=== PATIENT | female | born 1970 | race Asian ===

== ENCOUNTER 2022-05-22 16:10 | Emergency (ER) | payer OTHER ==
--- OUTSIDE RECORDS SUMMARY | 2022-05-22 16:15 | XMS REPORT | Continuity of Care Document ---
:1970 Author Organization [facility] t Address [address] [place] [address] Care Team Providers Name Role Phone TATUM MCKENNA Attending Clinician Unavailable Tatum Mckenna Attending Clinician Problems Condition Condition Condition Status Onset Resolution Last Treating Co mments Source Name Details Category Date Date Treatment Clinician Date I67.1 I67.1 Diagnosis Active 2020-052021-04-01 Mem oria Active 05-16 10:28:00 l 03/16/2021 00:00: Darnell slade [address] I67.1 - I67.1 - Diagnosis Active 2017-10-17 Memoria CEREBRAL CEREBRAL 06-26 09:50:00 l ANEURYSM, ANEURYSM, 00:01: Kevin garcia NONRUPTURE NONRUPTURE 00 D D Active 06/26/2017 BAM Araya XRAY XRAY Diagnosis Active 2015-11-10 Mem oria Active 11-02 06:13:00 l 11/03/2015 00:00: Darnell slade [address] 747.89 - 747.89 - Diagnosis Active 2013-12-20 Memoria [employer] 09-05 19:07:00 l Y ANO Y ANO 00:01: Marshal Active 00 09/05/2013 BAM Araya LEFT LEFT Diagnosis Active 2011-01-29 Mem oria POSTERIOR POSTERIOR - 12:39:00 l COMMUNICAT COMMUNICAT 00:00: Ubaldo nino ING ARTERY ING ARTERY 00 ANEURYSM ANEURYSM ICD-9# 437 ICD-9# 437 Active 01/19/2011 [facility] ANEURYSM ANEURYSM Diagnosis Active 2011-01-20 Memoria Active 01-19 15:35:00 l 01/19/2011 00:00: Darnell slade [address] COMMUNICAT COMMUNICA Diagnosis Active 2011-01-14 Memoria ING ARTERY TING 01-12 06:39:00 l ARTERY 00:00: Marshal Active 00 01/12/2011 [facility] Allergic Allergic Problem Active Commo n rhinitis, rhinitis, Spir it seasonal seasonal - [facility] History of History of Problem Active C ommon CVA CVA Spirit (cerebrova (cerebrova - [facility] scular scular [facility] accident) accident) Luke s without without Medical residual residual Center deficits deficits Benign Benign Problem Active Common hypertensi hypertensi Sp caleb on on - [facility] Arthritis Arthritis Problem Active Com mon [facility] caleb toe at toe at - [facility] metatarsop metatarsop St halangeal halangeal [facility] joint joint [facility] Gastroesop Gastroesop Problem Active C ommon hageal hageal Spirit reflux reflux - [facility] disease disease [facility] without without [facility] esophagiti esophagiti Ri dical [facility] Headache Headache Problem Active 2021-04-03 Memoria (finding) (finding) 00:01:47 l Active [place] Problem 04/03/2021 Medical Group,[facility] her Neuro,[facility] OPID [place] Hypertensi Hypertens Problem Active 2021-04-03 Memoria ve sandra 00:01:47 l disorder, disorder, Herm jose systemic systemic arterial arterial (disorder) (disorder) Active Problem 04/03/2021 Medical Group,[facility] her Neuro,[facility] OPID Marshal Subarachno Subarachn Problem Active 2021-04-03 Memoria id oid 00:01:47 l hemorrhage hemorrhage He rmann (disorder) (disorder) Active Problem 04/03/2021 Medical Group,[facility] her Neuro,[facility] OPID [place] Ventriculo Ventricul Problem Active 2021-04-03 Memoria stomy ostomy 00:01:47 l (procedure (procedure He rmann ) ) Active Problem 04/03/2021 Medical Group,[facility] her Neuro,[facility]ID [place] Headache Headache Problem Active 2011-02-02 Memoria Active 08:19:56 l Problem Marshal 02/02/2011 [facility] Hypertensi Hypertens Problem Active 2011-02-02 Memoria on ion Active 08:19:56 l Problem Marshal 02/02/2011 [facility] Subarachno Subarachn Problem Active 2011-02-02 Memoria id oid 08:19:56 l hemorrhage hemorrhage He rmann Active Problem 02/02/2011 [facility] Ventriculo Ventricul Problem Active 2011-02-02 Memoria stomy ostomy 08:19:56 l Active Marshal Problem 02/02/2011 [facility] NONRUPT NONRUPT Diagnosis Active 2011-01-29 Memoria CEREBRAL CEREBRAL 12:39:00 l ANEURYM ANEURYM Marshal Active [facility] Allergies, Adverse Reactions, Alerts This patient has no known allergies or adverse reactions. Social History Social Habit Start Date Stop Date Quantity Comments Source Social History 2021-03-31 2021-03-31 [facility] 13:30:41 13:30:41 Smoking Status Start Date Stop Date Source Social [facility] Medications Ordered Filled Start Stop Current Ordering Indication Dosage Frequency Signature Comments Components Source Medication Medication Date Date Medication? Clinician (SIG) Name Name Tylenol 2020-05 No 1,000 mg, Memor ia 06-01 Route: PO, l 21:04: ONCE, Marshal 00 Dosing Weight 56.818, kg, Priority: STAT, Start date: 03/31/21 15:04:00 [employer], Stop date: 03/31/21 15:04:00 [employer] Omnipaque 2020-05 No 150 mL, Memor ia 300 2 Route: l 17:02: INTRAARTER Marshal 00 IAL, Dosing Weight 56.818, kg, ONCE, Start date: 03/31/21 11:02:00 [employer], Stop date: 03/31/21 11:02:00 [employer] Fentanyl 2020-05 No 100 Memoria 2-01 microgram, l 17:02: Route: IV, [place] 00 ONCE, Dosing Weight 56.818, kg, Start date: 03/31/21 11:02:00 [employer], Stop date: 03/31/21 11:02:00 [employer] Midazolam 2020-05 No 2 mg, Memoria 2-01 Route: IV, l 17:02: ONCE, Dosing Weight 56.818, kg, Start date: 03/31/21 11:02:00 [employer], Stop date: 03/31/21 11:02:00 [employer] Aspirin 845 2020-05 Yes 1 packet, M emoria MG / 2-01 PO, PRN, 0 l Caffeine 65 14:02: Refill(s) H ermann MG Oral 00 Powder [BC Pain Relief] Tylenol 2020-05 Yes PO, PRN, 0 Tariq rayna 2- Refill(s) l 14:01: Marshal Aspirin 2020-05 Yes 81 mg, PO, Tariq rayna 2- Daily, 0 l 14:00: Refill(s) losartan 2020-05 Yes 100 mg = 1 Mem oria 100 mg oral 2-01 tab, PO, l tablet 13:59: Daily, # Marshal 00 30 tab, 0 Refill(s) normal 2020-05 No 1,000 mL, Memori a saline 0.9% 06-01 Rate: 125 l IV 1000 mL 13:54: ml/hr, Mariel 00 Infuse over: 8 hr, Route: IV, Dosing Weight 56.818 kg, Total Volume: 1,000, Start date: 03/31/21 7:54:00 [employer], Duration: 30 day, Stop date: 04/30/21 7:53:00 [employer], BSA: 1.59 m2 Nexium 24HR Nexium 24HR 2019-0 Yes Mann 1 capsule Common 5-20 [place] Spirit 00:00: - [facility] 2018-0 Yes Mann 1 tablet Common Sodium Sodium 4-19 Little in the Spirit 00:00: evening - [facility] Omnipaque 2015-0 No 150 mL, Memor ia 300 7-12 Route: l 13:27: INTRAARTER IAL, Dosing Weight 54.091, kg, ONCE, Start date: 11/10/15 8:27:00 CDT, Stop date: 11/10/15 8:27:00 CDT Midazolam 2015-0 No 2 mg, Memoria 7-12 Route: l 13:27: IVP, ONCE, [place] 00 Dosing Weight 54.091, kg, Start date: 11/10/15 8:27:00 CDT, Stop date: 11/10/15 8:27:00 CDT Fentanyl 2016-0 No 100 Memoria 7-12 microgram, l 13:27: Route: IV, Marshal 00 ONCE, Dosing Weight 54.091, kg, Start date: 11/10/15 8:27:00 CDT, Stop date: 11/10/15 8:27:00 CDT Senna 8.6 2010-05 Yes Zhane 8.6 mg, 1 M emoria mg oral 0-03 [place] tab, PO, l tablet 12:23: Q12H, 60 [place] 29 tab, Substituti on Allowed, Maintenanc e, TAB docusate 2010-05 Yes Zhane 100 mg, 1 Me moria sodium 100 0-03 [place] cap, PO, l mg oral 12:23: Q12H, 60 Darnell n capsule 17 cap, Substituti on Allowed, CAP acetaminoph 2010-05 Yes Zhane 1 tab, PO, Memoria en-hydrocod 0-03 [place] Q4H, PRN, l one 325 12:23: 60 tab, Marshal mg-5 mg 13 Pain Score oral tablet 1-3, Substituti on Allowed, Maintenanc e, TAB heparin 2010-05 No Renetta Denny 5,000 Mem oria 5000 0-02 Nita unit, 1 l units/mL 02:00: mL, Route: Her grubbs injectable 00 SUB-Q, solution Drug form: INJ, Q12H, Start date: 01/29/11 21:00:00, Duration: 30 day, Stop date: 02/28/11 9:00:00 vancomycin 2010-05 No Jui-En 1 gm, Tariq rayna 0-01 Edward Katz Route: l 13:00: IVPB, Drug Marshal 00 form: INJ, ABXQ8H, Start date: 01/29/11 8:00:00, Duration: 1 day, Stop date: 01/30/11 0:00:00 magnesium 2010-05 No Tatum Medardo 2 gm, 50 Memoria sulfate 0-01 Mckenna mL, Route: l 11:00: IVPB, Drug Marshal 00 form: INJ, Q2H, Start date: 01/29/11 6:00:00, Duration: 2 doses or times, Stop date: 01/29/11 8:00:00 calcium 2010- No Tatum Medardo 1,000 mg, M emoria chloride 0-01 Mckenna 10 mL, l 09:58: Route: Marshal 00 IVPB, ONCE, Start date: 01/29/11 4:58:00, Stop date: 01/29/11 4:58:00 K-Dur 20 2010-05 No Tatum Medardo 40 mEq, 2 Memoria 0-01 Mckenna tab, l 09:58: Route: PO, [place] 00 Drug form: ERTAB, ONCE, Start date: 01/29/11 4:58:00, Stop date: 01/29/11 4:58:00 famotidine 2010-05 No Sushil 20 mg, 1 M emoria 0-01 [place] tab, l 02:00: Shoemaker Route: PO, Darnell n 00 Drug form: TAB, Q12H, Start date: 01/28/11 21:00:00, Duration: 30 day, Stop date: 02/27/11 9:00:00 Dilantin No Fabian 300 mg, 3 Me moria 100 mg oral 9-30 [place] cap, l capsule, 22:00: Santacruz Route: PO, Her grubbs extended 00 Drug form: release ERCAP, QPM, Start date: 01/28/11 17:00:00, Duration: 3 day, Stop date: 01/30/11 17:00:00 Sodium No Renetta Denisha 1,000 mL, Memoria Chloride 9-30 Nita Rate: 75 l 0.9% IV 20:47: ml/hr, [place] 1,000 mL 00 Infuse over: 13.3 hr, Route: IV, Total Volume: 1,000, Start date: 01/28/11 15:47:00, Stop date: 02/27/11 15:46:00 labetalol No Sushil 10 mg, 2 Me moria 9-30 [place] mL, Route: l 20:44: Navid IVP, Drug Marshal form: INJ, Q15Min, PRN Hypertensi on, Start date: 01/28/11 15:44:00, Duration: 3 doses or times, Stop date: 01/29/11 0:00:00 Zofran No Sushil 4 mg, 2 Memori a 9-30 [place] mL, Route: l 20:44: Navid IVP, Drug form: INJ, Q8H, PRN Nausea, Start date: 01/28/11 15:44:00, Duration: 30 day, Stop date: 02/27/11 15:43:00 Fioricet No Sushil 1 tab, Memor ia oral tablet 30 [place] Route: PO, l 20:43: Navid Drug Form: Darnell n 00 TAB, Q4H, PRN Headache, Start date: 01/28/11 15:43:00, Duration: 30 day, Stop date: 02/27/11 15:42:00 morphine No Sushil 2 mg, 1 Tariq rayna Sulfate 930 [place] mL, Route: l 20:37: Navid IVP, Drug form: INJ, Q1H, PRN Pain Score 7-10, Start date: 01/28/11 15:37:00, Duration: 30 day, Stop date: 02/27/11 15:36:00 vancomycin No Tatum Medardo 1 gm, Me moria 30 Mckenna Route: l 20:08: IVPB, Drug form: INJ, ABXQ8H, Start date: 01/28/11 15:08:00, Duration: 3 doses or times, Stop date: 01/29/11 7:08:00 Dextrose No Sushil 12.5 gm, Mem oria 50% Syringe 01-28 [place] 25 mL, l 19:56: Navid Route: Marshal 00 IVP, Drug Form: INJ, PRN, PRN Abnormal Lab Result, Start date: 01/28/11 14:56:00, Duration: 30 day, Stop date: 02/27/11 14:55:00 insulin No Sushil 3 unit, Memor ia regular 930 [place] 0.03 mL, l human 19:56: Navid Route: [place] recombinant 00 SUB-Q, 100 Drug form: units/mL SOLN, PRN, injectable PRN solution Abnormal Lab Result, Start date: 01/28/11 14:56:00, Duration: 30 day, Stop date: 02/27/11 14:55:00 vancomycin No Fabian 1 gm, Tariq rayna (SCIP) 01-28 [place] Route: l 18:00: Santacruz IVPB, Drug form: INJ, ABXQ8H, Start date: 01/28/11 13:00:00, Duration: 24 hr, Stop date: 01/29/11 5:00:00 naloxone No Benita Tate 0.04 mg, Memoria 9-30 Madhavi 0.1 mL, l 17:49: Route: Marshal IVP, Drug form: INJ, Q2MIN, PRN Narcotic Reversal, Start date: 01/28/11 12:49:00, Duration: 8 doses or times, Stop date: Limited # of times niCARdipine No Benita Tate 0.25 mg, Memoria 9-30 Madhavi 0.1 mL, l 17:49: Route: IVP, Drug form: INJ, Q5Min, PRN Elevated BP, Start date: 01/28/11 12:49:00, Duration: 4 doses or times, Stop date: Limited # of times metoprolol No Benita Tate 1 mg, 1 Memoria tartrate 9-30 Madhavi mL, Route: l 17:49: IVP, Drug form: INJ, Q5Min, PRN Elevated BP, Start date: 01/28/11 12:49:00, Duration: 5 doses or times, Stop date: Limited # of times fentanyl No Benita Tate 25 Mem oria 9-30 Madhavi microgram, l 17:49: 0.5 mL, Route: IVP, Drug form: INJ, Q5Min, PRN Pain, Start date: 01/28/11 12:49:00, Duration: 4 doses or times, Stop date: Limited # of times flumazenil No Benita Tate 0.2 mg, 2 Memoria 9-30 Madhavi mL, Route: l 17:49: IVP, Drug form: INJ, PRN, PRN Other -See Comment, Initial dose, Start date: 01/28/11 12:49:00, Duration: 30 day, Stop date: 02/27/11 12:48:00 ondansetron No Benita Tate 4 mg, 2 Memoria 9-30 Madhavi mL, Route: l 17:49: IVP, Drug form: INJ, ONCE, PRN Nausea & Vomiting, Start date: 01/28/11 12:49:00 amLODipine No Fabian 5 mg, 1 Me moria 9-30 [place] tab, l 14:00: Santacruz Route: PO, Drug form: TAB, Daily, Start date: 01/28/11 9:00:00, Duration: 30 day, Stop date: 02/26/11 9:00:00 famotidine No Sushil 20 mg, 2 M emoria 9-30 [place] mL, Route: l 14:00: Shoemaker IVP, Drug form: INJ, Q12H, Start date: 01/28/11 9:00:00, Duration: 30 day, Stop date: 02/26/11 21:00:00 docusate No Fabian 100 mg, 1 Me moria 9-30 [place] cap, l 14:00: Santacruz Route: PO, Drug form: CAP, Q12H, Start date: 01/28/11 9:00:00, Duration: 30 day, Stop date: 02/26/11 21:00:00 Senna 8.6 No Fabian 8.6 mg, 1 M emoria mg oral 01-28 [place] tab, l tablet 14:00: Santacruz Route: PO, Drug Form: TAB, Q12H, Start date: 01/28/11 9:00:00, Duration: 30 day, Stop date: 02/26/11 21:00:00 cefazolin No Fabian 1 gm, Memor ia (SCIP) 01-28 [place] Route: l 14:00: Santacruz IVPB, Drug form: INJ, ABXQ8H, For < 70 kg, Start date: 01/28/11 9:00:00, Duration: 24 hr, Stop date: 01/29/11 1:00:00 Sodium 2010-0 No Sushil 1,000 mL, Tariq rayna Chloride 9-30 [place] Rate: 75 l 0.9% IV 13:12: Shoemaker ml/hr, [place] 1,000 mL 00 Infuse over: 13.3 hr, Route: IV, Total Volume: 1,000, Start date: 01/28/11 8:12:00, Duration: 30 day, Stop date: 02/27/11 8:11:00 Saline No Fabian 5 ml, Memoria Flush 0.9% 01-28 [place] Route: l 13:12: Santacruz IVP, Drug Marshal 00 Form: INJ, PRN, PRN Line Flush, Start date: 01/28/11 8:12:00, Duration: 30 day, Stop date: 02/27/11 8:11:00 acetaminoph No Fabian 1 tab, Me moria en-hydrocod 01-28 [place] Route: PO, l one 325 13:12: Santacruz Drug Form: Herm jose mg-5 mg 00 TAB, Q4H, oral tablet PRN Pain Score 1-3, Start date: 01/28/11 8:12:00, Duration: 30 day, Stop date: 02/27/11 8:11:00 morphine No Fabian 2 mg, 1 Tariq rayna Sulfate 01-28 [place] mL, Route: l 13:12: Santacruz IVP, Drug [place] 00 form: INJ, Q1H, PRN Pain Score 7-10, Start date: 01/28/11 8:12:00, Duration: 30 day, Stop date: 02/27/11 8:11:00 cefazolin No Sushil 2 gm, 100 M emoria 01-28 [place] mL, Route: l 10:00: Shoemaker IVPB, Drug Darnell n 00 form: INJ, PRE OP, Start date: 01/28/11 5:00:00, Duration: 1 doses or times, Stop date: 01/28/11 18:00:00 NS + KCL No Sushil 1,000 mL, Me moria 20mEq/L 01-28 [place] Rate: 70 l 1000ml 10:00: Shoemaker ml/hr, [place] (Premix) 00 Infuse 1,000 mL over: 14.3 hr, Route: IV, Total Volume: 1,000, Start date: 01/28/11 5:00:00, Duration: 1 doses or times, Stop date: 01/28/11 19:17:00 Excedrin Yes 2 tab, PO, Mem oria 250 mg-250 9-16 Q6H, PRN, l mg-65 mg 12:44: 50 tab, Darnell n oral tablet 17 for headache, Substituti on Allowed, Maintenanc e, TAB amLODipine Yes 1 tab, PO, M emoria 5 mg oral 9-16 Daily, 30 l tablet 12:43: tab, [place] 58 Substituti on Allowed, TAB Amlodipine Amlodipine Yes Mann take 1 Common Besylate Besylate Little tablet by Fabian hennessy mouth - [facility] every day [facility] Aspirin Aspirin Yes Mann 1 tablet Com mon Adult Low Adult Low Little Spir it Dose Dose - [facility] Vitamin B12 Vitamin B12 Yes Mann not Common Little defined [facility] Cozaar Cozaar Yes Mann 1 tablet Commo n Little [facility] Vitamin B6 Vitamin B6 Yes Mann not C ommon Little defined [facility] Flonase Flonase Yes Mann 1 spray in C ommon Little each [facility] nostril [facility] Folic Acid Folic Acid Yes Mann not C ommon Little defined [facility] Fish Oil Fish Oil Yes Mann 1 capsule Common Little [facility] Claritin Claritin Yes Mann 1 tablet C ommon Little [facility] Vital Signs Vital Name Observation Time Observation Value Comments Source Respitory Rate 2021-04-01 00:00:00 Memori al [place] Systolic (mm Hg) 2021-04-01 00:00:00 Tariq rial [place] Diastolic (mm Hg) 2021-04-01 00:00:00 Mem orial [place] Respitory Rate 2021-03-31 23:00:00 Memori al [place] Systolic (mm Hg) 2021-03-31 23:00:00 Tariq rial [place] Diastolic (mm Hg) 2021-03-31 23:00:00 Mem orial [place] Respitory Rate 2021-03-31 22:00:00 Memori al [place] Systolic (mm Hg) 2021-03-31 22:00:00 Tariq rial [place] Diastolic (mm Hg) 2021-03-31 22:00:00 Mem orial [place] Height 2021-03-31 13:25:00 157.48 cm Memorial [place] Weight 2021-03-31 13:25:00 Memorial Marshal BMI Calculated 2021-03-31 13:25:00 Memori al [place] Heart Rate 2017-08-04 21:54:00 [facility] [place] Temperature Oral (F) 2017-08-04 21:54:00 97.8 F [facility] [place] BMI Calculated 2017-08-04 21:54:00 Memori al [place] Weight 2017-08-04 21:54:00 [facility] [place] Height 2017-08-04 21:54:00 157.48 cm Memorial [place] Systolic (mm Hg) 2017-08-04 21:54:00 Tariq rial Marshal Diastolic (mm Hg) 2017-08-04 21:54:00 Mem orial [place] Systolic (mm Hg) 2015-11-10 16:50:00 Tariq rial [place] Diastolic (mm Hg) 2015-11-10 16:50:00 Mem orial [place] Respitory Rate 2015-11-10 16:50:00 Memori al [place] Systolic (mm Hg) 2015-11-10 15:50:00 Tariq rial [place] Diastolic (mm Hg) 2015-11-10 15:50:00 Mem orial Marshal Respitory Rate 2015-11-10 15:50:00 Memori al [place] Systolic (mm Hg) 2015-11-10 15:20:00 Tariq rial Marshal Diastolic (mm Hg) 2015-11-10 15:20:00 Mem orial [place] Respitory Rate 2015-11-10 15:20:00 Memori al [place] Height 2015-11-10 11:29:00 157.48 cm Memorial Marshal BMI Calculated 2015-11-10 11:29:00 Memori al [place] Weight 2015-11-10 11:29:00 Memorial [place] Diastolic (mm Hg) 2011-01-31 12:35:00 Mem orial Marshal Respitory Rate 2011-01-31 12:35:00 Memori al [place] Heart Rate 2011-01-31 12:35:00 [facility] [place] Temperature Oral (F) 2011-01-31 12:35:00 98.1 F [facility] [place] Systolic (mm Hg) 2011-01-31 12:35:00 Tariq rial [place] Systolic (mm Hg) 2011-01-31 09:00:00 Tariq rial Marshal Respitory Rate 2011-01-31 09:00:00 Memori al Marshal Temperature Oral (F) 2011-01-31 09:00:00 98.1 F [facility] [place] Heart Rate 2011-01-31 09:00:00 Memorial [place] Diastolic (mm Hg) 2011-01-31 09:00:00 Mem orial [place] Diastolic (mm Hg) 2011-01-31 04:08:00 Mem orial Marshal Temperature Oral (F) 2011-01-31 04:08:00 98.7 F [facility] [place] Heart Rate 2011-01-31 04:08:00 [facility] [place] Systolic (mm Hg) 2011-01-31 04:08:00 Tariq rial Marshal Respitory Rate 2011-01-31 04:08:00 Memori al [place] Weight 2011-01-27 19:43:00 Memorial [place] Height 2011-01-27 19:43:00 157.48 cm Memorial [place] Diastolic (mm Hg) 2011-01-14 15:35:00 Mem orial [place] Systolic (mm Hg) 2011-01-14 15:35:00 Tariq rial [place] Respitory Rate 2011-01-14 15:35:00 Memori al [place] Peripheral Pulse Rate 2011-01-14 15:35:00 Memorial Marshal Respitory Rate 2011-01-14 15:20:00 Memori al [place] Diastolic (mm Hg) 2011-01-14 15:20:00 Mem orial Marshal Systolic (mm Hg) 2011-01-14 15:20:00 Tariq rial Marshal Peripheral Pulse Rate 2011-01-14 15:20:00 [facility] [place] Systolic (mm Hg) 2011-01-14 12:42:00 Tariq rial [place] Diastolic (mm Hg) 2011-01-14 12:42:00 Mem orial [place] Peripheral Pulse Rate 2011-01-14 12:18:00 [facility] [place] Respitory Rate 2011-01-14 12:18:00 Hollis isrrael Araya Weight 2011-01-14 11:52:00 [facility] Height 2011-01-14 11:52:00 157.48 cm [facility] Procedures This patient has no known procedures. Encounters Start End Encounter Admission Attending Care Care Encounter Source Date/Time Date/Time Type Type Clinicians Facility Department ID 2021-03-31 2021-04-01 Bedded [facility] [id number] Memoria 12:49:00 00:00:00 Outpatient r [place] 03 l [facility] 2021-03-31 2021-03-31 Outpatient TATUM MCKENNA [facility] [id number] [facility] 06:49:00 18:00:00 2021-03-31 2021-03-31 Outpatient Tatum Mckenna [facility] [id number] 06:49:00 18:00:00 Medardo 2021-03-26 2021-03-27 [id number] Memoria 19:30:00 05:59:59 r Care Clear 01 l Jonancy [place] 2021-03-26 2021-03-26 Outpatient [facility] [id number] 13:30:00 23:59:59 2021-03-26 2021-03-26 Outpatient MHIE MHIE [id number] Memoria 13:30:00 13:30:00 01 [facility] 2021-03-23 2021-03-23 Outpatient Tatum Mckenna [facility] [id number] 08:30:00 08:30:00 Medardo 2019-02-20 2019-02-20 [facility] [id number] Common 13:00:00 13:00:00 [facility] 2018-12-17 2018-12-17 [facility] [id number] Common 08:14:00 08:14:00 [facility] 2018-11-07 2018-11-07 Out[facility] [id number] Common 15:15:00 15:15:00 [facility] 2018-08-20 2018-08-20 Out[facility] [id number] Common 16:15:00 16:15:[address] [facility] [address] [facility] 2018-04-11 2018-04-11 Out[facility] [id number] Common 15:15:00 15:15:[address] [facility] [address] [facility] 2017-09-18 2017-09-20 Phone nullFlavo [facility] [id number] Memoria 17:50:00 04:59:59 Message r Clinic [facility] 07 l [place] 2017-09-18 2017-09-19 Outpatient MHMISCHER MHMISCHER [id number] 12:50:00 23:59:59 07 2017-09-01 2017-09-02 Outpt Diag nullFlavo [facility] [id number] Memoria 12:47:00 04:59:00 Services r Outpatient 03 l Imaging [place] 2017-09-01 2017-09-01 [id number] 07:47:00 23:59:00 Medardo 2017-08-17 2017-08-17 [facility] [id number] Common 10:16:00 10:16:[address] [facility] [address] [facility] 2017-08-17 2017-08-17 Outpatient [facility] [id number] Common 09:30:00 09:30:[address] [facility] [address] [facility] 2017-08-04 2017-08-05 Outpatient nullFlavo MNA [id number] Memoria 17:00:00 04:59:59 r Neurosurger 00 l y [facility] 2017-08-04 2017-08-04 Outpatient Tatum Mckenna MHMISCHER MHMISCHER [id number] 12:00:00 23:59:59 Medardo 2017-08-04 2017-08-04 Outpatient MHIE MHIE [id number] Memoria 12:00:00 12:00:00 00 na Araya 2017-07-28 2017-07-28 Outpt Diag nullFlavo [facility] [id number] Memoria 14:00:00 14:00:00 Services r Outpatient 02 l Imaging [facility] 2017-07-28 2017-07-28 Outpatient Tatum Mckenna [facility] [id number] 09:00:00 09:00:00 Medardo 02 2017-07-06 2017-07-08 Phone nullFlavo MNA [id number] Memoria 19:49:00 05:59:59 Message r Neurosurger 06 l y [facility] 2017-07-06 2017-07-07 Outpatient MHMISCHER MHMISCHER [id number] 13:49:00 23:59:59 06 2017-07-06 2017-07-07 Outpatient MHMISCHER MHMISCHER [id number] 13:49:00 23:59:59 06 2017-06-20 2017-06-22 Phone nullFlavo MNA [id number] Memoria 21:53:00 05:59:59 Message r Neurosurger 05 l y [facility] 2017-06-20 2017-06-22 Phone nullFlavo MNA [id number] Memoria 21:52:00 05:59:59 Message r Neurosurger 04 l y [facility] 2017-06-20 2017-06-21 Outpatient MHMISCHER MHMISCHER [id number] 15:53:00 23:59:59 05 2017-06-20 2017-06-21 Outpatient MHMISCHER MHMISCHER [id number] 15:52:00 23:59:59 04 2017-06-16 2017-06-18 Phone nullFlavo MNA [id number] Memoria 21:11:00 05:59:59 Message r Neurosurger 03 l y [facility] 2017-06-16 2017-06-18 Phone nullFlavo MNA [id number] Memoria 21:09:00 05:59:59 Message r Neurosurger 02 l y [facility] 2017-06-16 2017-06-17 Outpatient MHMISCHER MHMISCHER [id number] 15:11:00 23:59:59 03 2017-06-16 2017-06-17 Outpatient MHMISCHER MHMISCHER [id number] 15:09:00 23:59:59 2015-11-10 2015-11-10 [id number] Memoria 11:05:00 17:00:00 Outpatient r [place] 02 l [facility] 2015-11-10 2015-11-10 Outpatient Tatum Mckenna [facility] [id number] 06:05:00 12:00:00 [place] 02 2011-01-28 2011-01-31 Inpatient nullFlavo [facility] [facility] [id number] Memoria 05:36:00 09:39:00 r Medical 01 l [facility] 2011-01-14 2011-01-14 JOE nullFlavo [facility] [id number] Memoria 06:28:00 16:00:00 r Medical 00 l [facility] Results Test Description Test Time Test Comments Results Result Comments Source IMMUNOLOGY 2021-03-26 18:29:00 Test Item Value Reference Range Interpretation Comme nts Coronavirus (COVID-19) ADRIANA (test code = Not Detected *NA*(03/26/21 12:29 PM) Coronavirus (COVID-19) ADRIANA) [facility]2016-07-12 12:43:00 Test Item Value Reference Range Interpretation Comments POC Creatinine (test code = POC 0.8 0.5-1.4 Creatinine) [facility]2016-07-12 12:43:00 Test Item Value Reference Range Interpretation Comments eGFR (test code = eGFR) 104 [facility]EejkluiNNJJLMTAGK4188-87-39 11:31:00 Test Item Value Reference Range Interpretation Comments MCV (test code = MCV) 89.8 80.0-98.0 [facility] CenterWwhgmnsHZKHFIVDRO8339-09-08 11:31:00 Test Item Value Reference Range Interpretation Comments Hct (test code = Hct) 38.4 36.0-48.0 [facility] CenterVumhyhsQFHIVCVXDI1406-61-52 11:31:00 Test Item Value Reference Range Interpretation Comments MPV (test code = MPV) 8.1 7.4-10.4 [facility] CenterXgjqrijWDTYUJNHAN8777-98-75 11:31:00 Test Item Value Reference Range Interpretation Comments Hgb (test code = Hgb) 13.1 12.0-16.0 [facility] CenterDqvprqoPYKRCCBAXR6266-39-93 11:31:00 Test Item Value Reference Range Interpretation Comments RBC (test code = RBC) 4.28 4.20-5.40 [place] 861426-07-12 11:31:00 Test Item Value Reference Range Interpretation Comments WBC (test code = WBC) 4.5 3.7-10.4 [facility] CenterHrlvsorPLWZZYTHON2205-00-00 11:31:00 Test Item Value Reference Range Interpretation Comments PT (test code = PT) 13.0 s 12.0-14.7 [facility] CenterTchewajZGESBAQPMY6921-54-23 11:31:00 Test Item Value Reference Range Interpretation Comments PTT (test code = PTT) 32.9 s 22.9-35.8 [facility] CenterBtrrffoDIHDZMCBAN8139-78-48 11:31:00 Test Item Value Reference Range Interpretation Comments INR (test code = INR) 0.95 0.85-1.17 [facility]2016-07-12 11:31:00 Test Item Value Reference Range Interpretation Comments eGFR (test code = eGFR) 104 [facility]2016-07-12 11:31:00 Test Item Value Reference Range Interpretation Comments CO2 (test code = CO2) 28 24-32 [facility]2016-07-12 11:31:00 Test Item Value Reference Range Interpretation Comments Calcium Lvl (test code = Calcium Lvl) 8.8 8.5-10.5 [facility]2016-07-12 11:31:00 Test Item Value Reference Range Interpretation Comments Chloride Lvl (test code = Chloride Lvl) 105 95-109 [facility]2016-07-12 11:31:00 Test Item Value Reference Range Interpretation Comments Glucose Lvl (test code = Glucose Lvl) 86 70-99 [facility]2016-07-12 11:31:00 Test Item Value Reference Range Interpretation Comments BUN (test code = BUN) 12 11-19 [facility]2016-07-12 11:31:00 Test Item Value Reference Range Interpretation Comments Creatinine Lvl (test code = Creatinine 0.80 0.50-1.40 Lvl) [facility]2016-07-12 11:31:00 Test Item Value Reference Range Interpretation Comments Sodium Lvl (test code = Sodium Lvl) 140 135-145 [facility]2016-07-12 11:31:00 Test Item Value Reference Range Interpretation Comments Potassium Lvl (test code = Potassium 4.2 3.5-5.1 Lvl) [facility]2016-07-12 11:31:00 Test Item Value Reference Range Interpretation Comments AGAP (test code = AGAP) 11.2 10.0-20.0 [facility] CenterIaznrruDEWNTZCLZA7863-61-38 11:31:00 Test Item Value Reference Range Interpretation Comments Monocytes # (test code 0.4 See_Comment [Aut omated message] The = Monocytes #) system which generated this result tra nsmitted reference range : <=0.8. The reference r maribel was not used to int erpret this result as normal/abnormal . [facility] CenterOhlaplbJMRJRLBKTU5728-06-64 11:31:00 Test Item Value Reference Range Interpretation Comments Eosinophils # (test code 0.2 See_Comment [A utomated message] The = Eosinophils #) system whic h generated this result tra nsmitted reference range : <=0.5. The reference r maribel was not used to int erpret this result as normal/abnormal . [facility] CenterVtdqvzcQHAXVSRWAQ2476-70-71 11:31:00 Test Item Value Reference Range Interpretation Comments Basophils # (test code 0.1 See_Comment [Aut omated message] The = Basophils #) system which generated this result tra nsmitted reference range : <=0.2. The reference r maribel was not used to int erpret this result as normal/abnormal . [facility] CenterQjrrktfJAXUCFYUOI3572-79-78 11:31:00 Test Item Value Reference Range Interpretation Comments Segs (test code = Segs) 48.5 45.0-75.0 [facility] CenterVquqxtcXSLCIWOYET8768-94-19 11:31:00 Test Item Value Reference Range Interpretation Comments Segs-Bands # (test code = Segs-Bands #) 2.2 1.5-8.1 [facility] CenterEhrjcbrAIBRPNCQQE9042-79-13 11:31:00 Test Item Value Reference Range Interpretation Comments Basophils (test code = 1.1 See_Comment [Aut omated message] The Basophils) system which ge nerated this result tra nsmitted reference range : <=1.0. The reference r maribel was not used to int erpret this result as normal/abnormal . [facility] CenterAlmfabkBHTAZLLKJB5979-22-52 11:31:00 Test Item Value Reference Range Interpretation Comments Lymphocytes # (test code = Lymphocytes 1.6 1.0-5.5 #) [facility] CenterZlpazkkKEMKOKQBKH8816-56-33 11:31:00 Test Item Value Reference Range Interpretation Comments Lymphocytes (test code = Lymphocytes) 36.1 20.0-40.0 [facility] CenterZzxaomzKWSVKQEFDB5347-42-61 11:31:00 Test Item Value Reference Range Interpretation Comments Eosinophils (test code = 4.9 See_Comment [A utomated message] The Eosinophils) system which ge nerated this result tra nsmitted reference range : <=4.0. The reference r maribel was not used to int erpret this result as normal/abnormal . [facility] CenterHseulguFARSOHCZKU9881-33-85 11:31:00 Test Item Value Reference Range Interpretation Comments Monocytes (test code = Monocytes) 9.4 2.0-12.0 [facility] CenterIjqgqrrEVQVUIDLBL3408-08-20 11:31:00 Test Item Value Reference Range Interpretation Comments Platelet (test code = Platelet) 287 133-450 [facility] CenterWcsgydiAEFVHPJFLT1074-71-19 11:31:00 Test Item Value Reference Range Interpretation Comments MCHC (test code = MCHC) 34.1 32.0-36.0 [facility] CenterOxfkfgtBZTKKKDNHU8493-25-22 11:31:00 Test Item Value Reference Range Interpretation Comments RDW (test code = RDW) 12.8 11.5-14.5 [facility] CenterMmkwhbdSXXSRAIXOM3616-77-03 11:31:00 Test Item Value Reference Range Interpretation Comments MCH (test code = MCH) 30.6 pg 27.0-31.0 [facility]WzptdmjWWZWEETYQ2705-25-28 06:21:00 Test Item Value Reference Range Interpretation Comments Ca Norm mgdL (test code = Ca Norm mgdL) 4.92 4.65-5.20 N [facility] CampusWthnzznIFQMHNTIA9534-03-92 06:21:00 Test Item Value Reference Range Interpretation Comments Ca Ion mgdL (test code = Ca Ion mgdL) 4.8 4.65-5.20 N [facility] CampusDvlwmavKUTPIUCAS9949-54-93 06:21:00 Test Item Value Reference Range Interpretation Comments Ca Norm (test code = Ca Norm) 1.23 1.16-1.30 N [facility] CampusWwxmvybXTMQFUHDW5638-78-71 06:21:00 Test Item Value Reference Range Interpretation Comments Ca Ion (test code = Ca Ion) 1.2 1.16-1.30 N [facility] CampusZssbxdoVTWJRGVIS8937-91-58 06:21:00 Test Item Value Reference Range Interpretation Comments Phosphorus (test code = Phosphorus) 2.4 2.5-4.5 L [facility] CampusWvorlxtOANVICNSJ8819-82-01 06:21:00 Test Item Value Reference Range Interpretation Comments AGAP (test code = AGAP) 12.6 10.0-20.0 N [facility] CampusArmtmxoBGXBZKQTZ7243-73-86 06:21:00 Test Item Value Reference Range Interpretation Comments Calcium Lvl (test code = Calcium Lvl) 8.7 8.5-10.5 N [facility] CampusXfvhvqmPTGHQLUWO1397-70-67 06:21:00 Test Item Value Reference Range Interpretation Comments CO2 (test code = CO2) 25.0 24-32 N [facility] CampusMzaxsdqWJPXTIVQL4826-71-79 06:21:00 Test Item Value Reference Range Interpretation Comments Glucose Lvl (test code = Glucose Lvl) 128.0 [facility] CampusDirugnwTAIKXNHUJ6640-98-83 06:21:00 Test Item Value Reference Range Interpretation Comments BUN (test code = BUN) 10.0 7-22 N [facility] CampusJimdsneASQKGDWWE1749-91-20 06:21:00 Test Item Value Reference Range Interpretation Comments Sodium Lvl (test code = Sodium Lvl) 137.0 135-145 N [facility] CampusIpkwpoiQTCLVQGGJ7524-34-31 06:21:00 Test Item Value Reference Range Interpretation Comments Creatinine Lvl (test code = Creatinine 1.0 0.5-1.4 N Lvl) [facility] CampusBiciasiCTHKPWNWH0724-00-88 06:21:00 Test Item Value Reference Range Interpretation Comments Chloride Lvl (test code = Chloride Lvl) 103.0 95-109 N [facility] CampusGvusdaaIDGQVINVL7683-01-69 06:21:00 Test Item Value Reference Range Interpretation Comments Potassium Lvl (test code = Potassium 3.6 3.5-5.1 N Lvl) [facility] CampusNhzmsfcIDNENANFC4090-76-09 06:21:00 Test Item Value Reference Range Interpretation Comments Magnesium Lvl (test code = Magnesium 2.0 1.8-2.4 N Lvl) [facility]qmyowsIUVASWJBSA0063-90-75 06:21:00 Test Item Value Reference Range Interpretation Comments Segs-Bands # (test code = Segs-Bands #) 8.5 1.5-8.1 H [facility] CenterToihmvaRMDGPUTYEY0752-20-17 06:21:00 Test Item Value Reference Range Interpretation Comments Lymphocytes # (test code = Lymphocytes 1.2 1.0-5.5 N #) [facility] CenterFaoxhblBAKEIFHQYA1999-76-18 06:21:00 Test Item Value Reference Range Interpretation Comments Eosinophils (test code = 0.1 See_Comment N [A utomated message] The Eosinophils) system which ge nerated this result tra nsmitted reference range : <=4.0. The reference r maribel was not used to int erpret this result as normal/abnormal . [facility] CenterSrzyyrvZYNGISJRDS0470-93-28 06:21:00 Test Item Value Reference Range Interpretation Comments Monocytes (test code = Monocytes) 8.3 2.0-12.0 N [facility] CenterMyxnpkfVEWNRTOUVM0234-92-60 06:21:00 Test Item Value Reference Range Interpretation Comments Segs (test code = Segs) 78.8 45.0-75.0 H [facility] CenterYvhynzwZQSUCRSKRE1007-68-79 06:21:00 Test Item Value Reference Range Interpretation Comments Lymphocytes (test code = Lymphocytes) 11.1 20.0-40.0 L [facility] CenterXjqndfwJUOYMNANOI3012-58-16 06:21:00 Test Item Value Reference Range Interpretation Comments Monocytes # (test code 0.9 See_Comment H [Aut omated message] The = Monocytes #) system which generated this result tra nsmitted reference range : <=0.8. The reference r maribel was not used to int erpret this result as normal/abnormal . [facility] CenterPagvjnnRGMUJHRDTN2440-82-18 06:21:00 Test Item Value Reference Range Interpretation Comments Eosinophils # (test code 0.0 See_Comment N [A utomated message] The = Eosinophils #) system whic h generated this result tra nsmitted reference range : <=0.5. The reference r maribel was not used to int erpret this result as normal/abnormal . [facility] CenterAxiwkpdORXPLIUBXD7284-35-57 06:21:00 Test Item Value Reference Range Interpretation Comments Basophils (test code = 1.7 See_Comment H [Aut omated message] The Basophils) system which ge nerated this result tra nsmitted reference range : <=1.0. The reference r maribel was not used to int erpret this result as normal/abnormal . [facility] CenterFdmncsyLCIMTOYFHV5333-48-76 06:21:00 Test Item Value Reference Range Interpretation Comments Basophils # (test code 0.2 See_Comment N [Aut omated message] The = Basophils #) system which generated this result tra nsmitted reference range : <=0.2. The reference r maribel was not used to int erpret this result as normal/abnormal . [facility] CenterHwzffdeIOWJTFQZXG8164-31-39 06:21:00 Test Item Value Reference Range Interpretation Comments INR (test code = INR) 1.1 1 0.85-1.17 N [facility] CenterDftaybzBVYRHSQLCO0441-85-47 06:21:00 Test Item Value Reference Range Interpretation Comments PT (test code = PT) 14.2 s 12.0-14.7 N [facility] CenterAzernoxOEMOEBELUQ8335-04-35 06:21:00 Test Item Value Reference Range Interpretation Comments PTT (test code = PTT) 40.2 s 22.9-35.8 H [facility] CenterDruoqgqWZLRHLTTXP4462-13-69 06:21:00 Test Item Value Reference Range Interpretation Comments Platelet (test code = Platelet) 221.0 133-450 N [facility] CenterRuaqfcpZBHNMGBQCX3459-78-92 06:21:00 Test Item Value Reference Range Interpretation Comments MPV (test code = MPV) 8.6 7.4-10.4 N [facility] CenterHkuiweiYCCQYQGEOX5904-75-91 06:21:00 Test Item Value Reference Range Interpretation Comments MCH (test code = MCH) 29.2 pg 27.0-31.0 N [facility] CenterMjqdajdCEAUDADWWZ0081-78-47 06:21:00 Test Item Value Reference Range Interpretation Comments MCV (test code = MCV) 85.3 81.0-99.0 N [facility] CenterXxpqhsgRPFCKXENFZ7253-45-84 06:21:00 Test Item Value Reference Range Interpretation Comments RDW (test code = RDW) 15.0 11.5-14.5 H [facility] CenterMelztxqEWZPFSWHKW4244-25-63 06:21:00 Test Item Value Reference Range Interpretation Comments MCHC (test code = MCHC) 34.2 32.0-36.0 N [facility] CenterLjjmzumEOAABOPXWL1753-51-13 06:21:00 Test Item Value Reference Range Interpretation Comments RBC (test code = RBC) 3.66 4.20-5.40 L [facility] CenterGundwmhRBJTMVFNLU4492-70-95 06:21:00 Test Item Value Reference Range Interpretation Comments WBC (test code = WBC) 10.8 3.7-10.4 H [facility] CenterDdghkbtYJYIYXGEAO1724-54-71 06:21:00 Test Item Value Reference Range Interpretation Comments Hgb (test code = Hgb) 10.7 12.0-16.0 L [facility] CenterWawmqrdZIDRKUFEQP0279-69-15 06:21:00 Test Item Value Reference Range Interpretation Comments Hct (test code = Hct) 31.2 36.0-48.0 L [facility] CampusIgykfwvJAVMAWRFF5678-10-13 15:12:00 Test Item Value Reference Range Interpretation Comments Calcium Lvl (test code = Calcium Lvl) 9.4 8.5-10.5 N [facility] CampusZjfhpxtBBYQSZLOS0075-74-44 15:12:00 Test Item Value Reference Range Interpretation Comments AGAP (test code = AGAP) 10.8 10.0-20.0 N [facility] CampusVopfkziDQLBEALQF2036-81-62 15:12:00 Test Item Value Reference Range Interpretation Comments Potassium Lvl (test code = Potassium 3.8 3.5-5.1 N Lvl) [facility] CampusLqgwttjSBTJAIHXA1317-82-81 15:12:00 Test Item Value Reference Range Interpretation Comments CO2 (test code = CO2) 27.0 24-32 N [facility] CampusPmhukieDTGYHBZHP5086-59-95 15:12:00 Test Item Value Reference Range Interpretation Comments Chloride Lvl (test code = Chloride Lvl) 103.0 95-109 N [facility] CampusAderozlZCPMEFEEI1509-93-07 15:12:00 Test Item Value Reference Range Interpretation Comments Sodium Lvl (test code = Sodium Lvl) 137.0 135-145 N [facility] CampusSwcejqmPRLFAGYEE6598-29-50 15:12:00 Test Item Value Reference Range Interpretation Comments Creatinine Lvl (test code = Creatinine 0.8 0.5-1.4 N Lvl) [facility] CampusFodhwiaSXVWGTBCA5086-40-61 15:12:00 Test Item Value Reference Range Interpretation Comments BUN (test code = BUN) 7.0 7-22 N [facility] CampusYqngbsiTHIWRIAVJ4293-44-07 15:12:00 Test Item Value Reference Range Interpretation Comments Glucose Lvl (test code = Glucose Lvl) 107.0 [facility] GLUCOSE MDSOHDE4864-32-99 12:32:00 Test Item Value Reference Range Interpretation Comments Gluc POC Lifscn (test code = Gluc POC 120.0 65-110 H Lifscn) [facility] CampusEsdaijpVJIUUMAMD7508-11-31 11:15:00 Test Item Value Reference Range Interpretation Comments U Osmolality (test code = U Osmolality) 194.0 300-800 L [facility] CampusLjusaueMXOWYKAAR0685-67-95 11:15:00 Test Item Value Reference Range Interpretation Comments U Sodium (test code = U Sodium) 32.0 [facility] GLUCOSE GBZFMBP8414-73-33 08:40:00 Test Item Value Reference Range Interpretation Comments Comment1 (test code = Comment1) Notify RN/MD [facility] GLUCOSE CRENEXQ1485-95-60 08:40:00 Test Item Value Reference Range Interpretation Comments Gluc POC Lifscn (test code = Gluc POC 115.0 65-110 H Lifscn) [facility] CampusRpzwknzLEFDXEFXQ6325-36-46 06:00:00 Test Item Value Reference Range Interpretation Comments Phosphorus (test code = Phosphorus) 3.2 2.5-4.5 N [facility] CampusHtojlyaJOKVHMWCS4678-64-89 06:00:00 Test Item Value Reference Range Interpretation Comments Magnesium Lvl (test code = Magnesium 1.5 1.8-2.4 L Lvl) [facility] CampusWnmhiikFGANBYSZO3840-81-33 06:00:00 Test Item Value Reference Range Interpretation Comments AGAP (test code = AGAP) 12.7 10.0-20.0 N [facility] CampusGxagfipXUKRSVALF6070-66-13 06:00:00 Test Item Value Reference Range Interpretation Comments CO2 (test code = CO2) 22.0 24-32 L [facility] CampusAkjwimjEVGUZGYTW6140-95-05 06:00:00 Test Item Value Reference Range Interpretation Comments Calcium Lvl (test code = Calcium Lvl) 8.2 8.5-10.5 L [facility] CampusQlqgrieOFMYWUDIA1423-56-07 06:00:00 Test Item Value Reference Range Interpretation Comments Glucose Lvl (test code = Glucose Lvl) 115.0 [facility] CampusWdlqgxkCLHKGTBBC4359-16-56 06:00:00 Test Item Value Reference Range Interpretation Comments Creatinine Lvl (test code = Creatinine 0.8 0.5-1.4 N Lvl) [facility] CampusYclbwljIENMLNKDK9453-12-24 06:00:00 Test Item Value Reference Range Interpretation Comments Sodium Lvl (test code = Sodium Lvl) 130.0 135-145 L [facility] CampusBadvgwfRRZLOVBSA0768-39-82 06:00:00 Test Item Value Reference Range Interpretation Comments BUN (test code = BUN) 7.0 7-22 N [facility] CampusMulosqvHZSFFASLY8611-79-97 06:00:00 Test Item Value Reference Range Interpretation Comments Chloride Lvl (test code = Chloride Lvl) 99.0 95-109 N [facility] CampusCffrzpsNXCPUHSEY7257-25-26 06:00:00 Test Item Value Reference Range Interpretation Comments Potassium Lvl (test code = Potassium 3.7 3.5-5.1 N Lvl) [facility] CampusDvmbbfyVYDLZYFPN7516-46-48 06:00:00 Test Item Value Reference Range Interpretation Comments Ca Norm (test code = Ca Norm) 1.12 1.16-1.30 L [facility] CampusOmjrslmEHLKZLXDJ9813-07-54 06:00:00 Test Item Value Reference Range Interpretation Comments Ca Ion mgdL (test code = Ca Ion mgdL) 4.48 4.65-5.20 L [facility] CampusBtecaenORYXSNOOK4283-79-38 06:00:00 Test Item Value Reference Range Interpretation Comments Ca Norm mgdL (test code = Ca Norm mgdL) 4.48 4.65-5.20 L [facility] CampusVckvtxmAASZVNYGF1462-10-46 06:00:00 Test Item Value Reference Range Interpretation Comments Ca Ion (test code = Ca Ion) 1.12 1.16-1.30 L [facility] CenterGjycyglLRQQIUGPGS0356-54-35 06:00:00 Test Item Value Reference Range Interpretation Comments MPV (test code = MPV) 8.6 7.4-10.4 N [facility] CenterZqknrovINQTMMDJEQ8789-54-93 06:00:00 Test Item Value Reference Range Interpretation Comments RDW (test code = RDW) 14.9 11.5-14.5 H [facility] CenterCehmdslVDIWLPJJSJ3709-14-50 06:00:00 Test Item Value Reference Range Interpretation Comments Platelet (test code = Platelet) 206.0 133-450 N [facility] CenterRtnuwasTHDAEFZKJA0714-84-75 06:00:00 Test Item Value Reference Range Interpretation Comments Hct (test code = Hct) 29.1 36.0-48.0 L [facility] CenterBnqalszRNNZSFGPHD5651-88-18 06:00:00 Test Item Value Reference Range Interpretation Comments MCV (test code = MCV) 86.1 81.0-99.0 N [facility] CenterQugjyveSMIDNVIIYQ3708-00-92 06:00:00 Test Item Value Reference Range Interpretation Comments RBC (test code = RBC) 3.38 4.20-5.40 L [facility] CenterTpjxaooXEFFOKTDHS1966-44-55 06:00:00 Test Item Value Reference Range Interpretation Comments Hgb (test code = Hgb) 9.8 12.0-16.0 L [facility] CenterRmibtgjOVYCQMDGLE3781-43-96 06:00:00 Test Item Value Reference Range Interpretation Comments MCH (test code = MCH) 29.1 pg 27.0-31.0 N [facility] CenterAkpspxqUQIPZCNHAT8663-61-20 06:00:00 Test Item Value Reference Range Interpretation Comments MCHC (test code = MCHC) 33.8 32.0-36.0 N [facility] CenterYiefjzsSWYSGRCBEJ5971-39-44 06:00:00 Test Item Value Reference Range Interpretation Comments WBC (test code = WBC) 13.1 3.7-10.4 H [facility] CenterRkdjccxZEXLLUPIQI3937-08-36 06:00:00 Test Item Value Reference Range Interpretation Comments Basophils # (test code 0.0 See_Comment N [Aut omated message] The = Basophils #) system which generated this result tra nsmitted reference range : <=0.2. The reference r maribel was not used to int erpret this result as normal/abnormal . [facility] CenterBxryjcrMVZCYATVBT0449-52-67 06:00:00 Test Item Value Reference Range Interpretation Comments Eosinophils # (test code 0.0 See_Comment N [A utomated message] The = Eosinophils #) system whic h generated this result tra nsmitted reference range : <=0.5. The reference r maribel was not used to int erpret this result as normal/abnormal . [facility] CenterYlhyoqqLOSVFQMJCN7357-55-93 06:00:00 Test Item Value Reference Range Interpretation Comments Monocytes (test code = Monocytes) 2.3 2.0-12.0 N [facility] CenterSpwqoflSBPHMHVPMC6140-84-20 06:00:00 Test Item Value Reference Range Interpretation Comments Eosinophils (test code = 0.0 See_Comment N [A utomated message] The Eosinophils) system which ge nerated this result tra nsmitted reference range : <=4.0. The reference r maribel was not used to int erpret this result as normal/abnormal . [facility] CenterKsabfpzRDKSGGUTBX2517-31-71 06:00:00 Test Item Value Reference Range Interpretation Comments Segs (test code = Segs) 92.4 45.0-75.0 H [facility] CenterJgwdjofZGYQUHJSGB9655-34-14 06:00:00 Test Item Value Reference Range Interpretation Comments Lymphocytes (test code = Lymphocytes) 5.2 20.0-40.0 L [facility] CenterAinmhdfYBWEEFNUBC1392-73-36 06:00:00 Test Item Value Reference Range Interpretation Comments Monocytes # (test code 0.3 See_Comment N [Aut omated message] The = Monocytes #) system which generated this result tra nsmitted reference range : <=0.8. The reference r maribel was not used to int erpret this result as normal/abnormal . [facility] CenterKybswayILXTMFXEUU5819-94-45 06:00:00 Test Item Value Reference Range Interpretation Comments Segs-Bands # (test code = Segs-Bands #) 12.1 1.5-8.1 H [facility] CenterKglzfluMWUHKZBWRS3547-44-72 06:00:00 Test Item Value Reference Range Interpretation Comments Lymphocytes # (test code = Lymphocytes 0.7 1.0-5.5 L #) [facility] CenterPxhsyhwEDFBOJJXAW8454-90-69 06:00:00 Test Item Value Reference Range Interpretation Comments Basophils (test code = 0.1 See_Comment N [Aut omated message] The Basophils) system which ge nerated this result tra nsmitted reference range : <=1.0. The reference r maribel was not used to int erpret this result as normal/abnormal . [facility] GLUCOSE DBQRJCB0884-87-35 04:41:00 Test Item Value Reference Range Interpretation Comments Comment1 (test code = Comment1) Notify RN/ [facility] GLUCOSE [id number] 04:41:00 Test Item Value Reference Range Interpretation Comments Gluc POC Lifscn (test code = Gluc POC 140.0 65-110 H Lifscn) [facility] GLUCOSE [id number] 00:17:00 Test Item Value Reference Range Interpretation Comments Comment1 (test code = Comment1) Not[facility]ygkvakLbknixajjwkd6886-51-90 21:00:00 Test Item Value Reference Range Interpretation Comments Culture: Resistant Acinetobacter Screen (test code = Culture: Resistant Acinetobacter Screen) [facility] CenterMraekawGkknoqimmkeq7000-00-33 21:00:00 Test Item Value Reference Range Interpretation Comments Culture: MRSA (test code = Culture: MRSA) [facility]UmiosaqAJYYGKSLC5407-50-19 20:48:00 Test Item Value Reference Range Interpretation Comments Globulin (test code = Globulin) 2.7 2.0-4.0 N [facility] CampusXeudixmLFVKLJIML9673-94-69 20:48:00 Test Item Value Reference Range Interpretation Comments A/G Ratio (test code = A/G Ratio) 1.4 1 0.7-1.6 N [facility] CampusJvtrahdWIUQTJGXT8887-59-37 20:48:00 Test Item Value Reference Range Interpretation Comments B/C Ratio (test code = B/C Ratio) 17.0 1 6-25 N [facility] CampusWtgkxkzYEPIWERFR0724-91-39 20:48:00 Test Item Value Reference Range Interpretation Comments AST (test code = AST) 14.0 See_Comment N [Auto mated message] The system which ge nerated this result transmit brianda reference range : <=37. The reference range was not used to interpr et this result as cleopatra l/abnormal. [facility] CampusIikjxfqOMLJCGQWE7605-28-44 20:48:00 Test Item Value Reference Range Interpretation Comments ALT (test code = ALT) 22.0 See_Comment N [Auto mated message] The system which ge nerated this result transmit brianda reference range : <=65. The reference range was not used to interpr et this result as cleopatra l/abnormal. [facility] CampusBekgnqrLCANRIGSM7001-99-95 20:48:00 Test Item Value Reference Range Interpretation Comments Alk Phos (test code = Alk Phos) 45.0 39-136 N [facility] CampusVdigwlmYFHKTWWKT0524-00-49 20:48:00 Test Item Value Reference Range Interpretation Comments Bili Total (test code = Bili Total) 0.8 0.2-1.3 N [facility] CampusEylzslvDJLEKHPLQ9348-60-56 20:48:00 Test Item Value Reference Range Interpretation Comments Albumin Lvl (test code = Albumin Lvl) 3.9 3.5-5.0 N [facility] CampusKjdizugWPDOODGQG6976-14-66 20:48:00 Test Item Value Reference Range Interpretation Comments Total Protein (test code = Total 6.6 6.4-8.4 N Protein) [facility] CampusIivcvsmHXLCOJMXZ1558-64-37 20:48:00 Test Item Value Reference Range Interpretation Comments Lactic Acid Lvl (test code = Lactic 1.4 0.5-2.2 N Acid Lvl) [facility]GojzvvqJGMBIZYDBK1569-68-67 20:48:00 Test Item Value Reference Range Interpretation Comments Hct (test code = Hct) 29.0 36.0-48.0 L [facility] CenterKnrmdfvEXTYIIHEUO4918-04-73 20:48:00 Test Item Value Reference Range Interpretation Comments MCV (test code = MCV) 86.9 81.0-99.0 N [facility] CenterGitszcgFHXJKOMDBO4722-96-08 20:48:00 Test Item Value Reference Range Interpretation Comments RDW (test code = RDW) 14.7 11.5-14.5 H [facility] CenterDvhxobaNOATARSQQX5158-00-60 20:48:00 Test Item Value Reference Range Interpretation Comments MCH (test code = MCH) 29.3 pg 27.0-31.0 N [facility] CenterRqxfteeZSPJKZFONW4459-94-18 20:48:00 Test Item Value Reference Range Interpretation Comments MCHC (test code = MCHC) 33.7 32.0-36.0 N [facility] CenterEmhonwmBXSBYZYLZP4320-30-99 20:48:00 Test Item Value Reference Range Interpretation Comments Hgb (test code = Hgb) 9.8 12.0-16.0 L [facility] CenterLwnsrlfZYJTLASKKE9958-70-31 20:48:00 Test Item Value Reference Range Interpretation Comments RBC (test code = RBC) 3.33 4.20-5.40 L [facility] CenterWmwnkqcSKLGPOCMIF9705-10-47 20:48:00 Test Item Value Reference Range Interpretation Comments Platelet (test code = Platelet) 213.0 133-450 N [facility] CenterYxiuxnyJHPWYHVIJQ9397-28-60 20:48:00 Test Item Value Reference Range Interpretation Comments MPV (test code = MPV) 8.1 7.4-10.4 N [facility] CenterNsxowpoEBYOMDEKPB6051-21-42 20:48:00 Test Item Value Reference Range Interpretation Comments WBC (test code = WBC) 14.0 3.7-10.4 H [facility] CenterSwllrqkUXUKOYSDWE1031-92-81 20:48:00 Test Item Value Reference Range Interpretation Comments INR (test code = INR) 1.08 1 0.85-1.17 N [facility] CenterLgdbyaaALPKIRFEOL5943-62-74 20:48:00 Test Item Value Reference Range Interpretation Comments PT (test code = PT) 14.0 s 12.0-14.7 N [facility] CenterTvsykwdCYFVUZIPCP0822-02-98 20:48:00 Test Item Value Reference Range Interpretation Comments PTT (test code = PTT) 28.6 s 22.9-35.8 N [facility] CenterXnjeabqXHYZTYITWF0932-27-55 20:48:00 Test Item Value Reference Range Interpretation Comments Basophils (test code = 0.0 See_Comment N [Aut omated message] The Basophils) system which ge nerated this result tra nsmitted reference range : <=1.0. The reference r maribel was not used to int erpret this result as normal/abnormal . [facility] CenterTuktibrMVYOSLEVOF3965-27-35 20:48:00 Test Item Value Reference Range Interpretation Comments Lymphocytes # (test code = Lymphocytes 0.7 1.0-5.5 L #) [facility] CenterFzsktvmFHVTPEPPGR3130-46-94 20:48:00 Test Item Value Reference Range Interpretation Comments Segs-Bands # (test code = Segs-Bands #) 12.6 1.5-8.1 H [facility] CenterNkrxnloIJHOTCYUCG2186-59-66 20:48:00 Test Item Value Reference Range Interpretation Comments Monocytes # (test code 0.6 See_Comment N [Aut omated message] The = Monocytes #) system which generated this result tra nsmitted reference range : <=0.8. The reference r maribel was not used to int erpret this result as normal/abnormal . [facility] CenterSdnaecvUEATJCRCQY0408-59-02 20:48:00 Test Item Value Reference Range Interpretation Comments Eosinophils # (test code 0.0 See_Comment N [A utomated message] The = Eosinophils #) system whic h generated this result tra nsmitted reference range : <=0.5. The reference r maribel was not used to int erpret this result as normal/abnormal . [facility] CenterUpmyvwbCVLVWMDRTV8300-31-86 20:48:00 Test Item Value Reference Range Interpretation Comments Monocytes (test code = Monocytes) 4.6 2.0-12.0 N [facility] CenterPgdzkbnFTZKGNISTE9152-67-33 20:48:00 Test Item Value Reference Range Interpretation Comments Lymphocytes (test code = Lymphocytes) 4.8 20.0-40.0 L [facility] CenterKtbehuvPHEAHBDHLG2450-00-82 20:48:00 Test Item Value Reference Range Interpretation Comments Eosinophils (test code = 0.0 See_Comment N [A utomated message] The Eosinophils) system which ge nerated this result tra nsmitted reference range : <=4.0. The reference r maribel was not used to int erpret this result as normal/abnormal . [facility] CenterZoqnjzdVNYQRYFSVZ9593-59-50 20:48:00 Test Item Value Reference Range Interpretation Comments Basophils # (test code 0.0 See_Comment N [Aut omated message] The = Basophils #) system which generated this result tra nsmitted reference range : <=0.2. The reference r maribel was not used to int erpret this result as normal/abnormal . [facility] CenterRjvovclKJUFPOHEYY6619-10-19 20:48:00 Test Item Value Reference Range Interpretation Comments Segs (test code = Segs) 90.6 45.0-75.0 H [facility] CenterXwnmqeuXYHQJJWKVD5980-34-97 20:48:00 Test Item Value Reference Range Interpretation Comments Plt Morph (test code = Normal (01/28/2011 N Plt Morph) 15:48:00) ?? [facility] CenterAejpmhxSNECOCHRMJ3261-13-49 20:48:00 Test Item Value Reference Range Interpretation Comments RBC Morph (test code = Normal (01/28/2011 N RBC Morph) 15:48:00) ?? [facility] CampusIhudsiqLPEOXCOBY5004-32-77 14:37:00 Test Item Value Reference Range Interpretation Comments POC A LA (test code = POC A LA) 0.8 0.5-2.2 N [facility] CampusYsldrlsLRMRYFZHV8141-21-13 14:37:00 Test Item Value Reference Range Interpretation Comments POC A Glu (test code = POC A Glu) 124.0 65-110 H [facility] CampusElsdzssIGHFENXTF9070-90-18 14:37:00 Test Item Value Reference Range Interpretation Comments POC A K (test code = POC A K) 3.4 3.5-5.1 L [facility] CampusTcnhowgUELKSPMJG0086-29-17 14:37:00 Test Item Value Reference Range Interpretation Comments POC A Ca Ion (test code = POC A Ca Ion) 1.12 1.16-1.30 L [facility] CampusOakzixhCKWQBNKUA5161-90-57 14:37:00 Test Item Value Reference Range Interpretation Comments POC A Source (test code = POC A Source) ART [facility] CampusYvtrzwwEVOARGPBY8610-40-93 14:37:00 Test Item Value Reference Range Interpretation Comments POC A Temp (test code = POC A Temp) 37.0 [facility] CampusGsxgglrKEKWITBLE5375-29-71 14:37:00 Test Item Value Reference Range Interpretation Comments POC A Na (test code = POC A Na) 137.0 135-145 N [facility] CampusFuixlvmHPCFGYJUU4669-11-18 14:37:00 Test Item Value Reference Range Interpretation Comments POC A Hct (test code = POC A Hct) 31.0 36.0-48.0 L [facility] CampusIihpyabFVTNPBILU8509-38-52 14:37:00 Test Item Value Reference Range Interpretation Comments POC A PCO2 (test code = POC A PCO2) 41.0 35-45 N [facility] CampusKuunkbuJHXXRNJJH1725-24-67 14:37:00 Test Item Value Reference Range Interpretation Comments POC A PO2 (test code = POC A PO2) 352.0 80-100 H [facility] CampusWjtbrpeRVXKQXBOU7152-47-35 14:37:00 Test Item Value Reference Range Interpretation Comments POC A HCO3 (test code = POC A HCO3) 27.0 22-26 H [facility] CampusSkyczgsNWSQGRNMM1156-75-75 14:37:00 Test Item Value Reference Range Interpretation Comments POC A O2 Sat (test code = POC A O2 Sat) 100.0 95.0-100.0 N [facility] CampusWyqmrevQLFIKVOLX7067-96-05 14:37:00 Test Item Value Reference Range Interpretation Comments POC A BE (test code = 2.0 See_Comment N [Auto mated message] The POC A BE) system which ge nerated this result transmit brianda reference range : <=2. The reference range was not used to interpr et this result as cleopatra l/abnormal. [facility] CampusCkzqwimAOGAUBYEX2942-71-86 14:37:00 Test Item Value Reference Range Interpretation Comments POC A pH (test code = POC A pH) 7.42 1 7.35-7.45 N [facility] BZFXFFO0981-55-26 18:05:00 Test Item Value Reference Range Interpretation Comments ABO/Rh (test code = ABO/Rh) O POS [facility] [place] SDYTRED2310-30-49 18:05:00 Test Item Value Reference Range Interpretation Comments Antibody Scrn (test Negative (01/27/2011 N code = Antibody Scrn) 13:05:00) ?? [facility]landTyniibcGYJPTBKUV1742-13-69 14:30:00 Test Item Value Reference Range Interpretation Comments A/G Ratio (test code = A/G Ratio) 1.1 1 0.7-1.6 N [facility] ZwihbdaEXTHFALEB6636-24-93 14:30:00 Test Item Value Reference Range Interpretation Comments Globulin (test code = Globulin) 3.7 2.0-4.0 N [facility]landFyekkksADBTYMHFP0588-70-00 14:30:00 Test Item Value Reference Range Interpretation Comments B/C Ratio (test code = B/C Ratio) 18.0 1 6-25 N [facility] SiittlyWWEDTYTMV6308-09-59 14:30:00 Test Item Value Reference Range Interpretation Comments AST (test code = AST) 11.0 See_Comment N [Auto mated message] The system which ge nerated this result transmit brianda reference range : <=37. The reference range was not used to interpr et this result as cleopatra l/abnormal. [facility]landJwxybopOZAOBLRYZ4189-15-74 14:30:00 Test Item Value Reference Range Interpretation Comments Alk Phos (test code = Alk Phos) 61.0 39-136 N [facility] NhxoiybCXNIFHXXI3996-40-64 14:30:00 Test Item Value Reference Range Interpretation Comments Bili Total (test code = Bili Total) 0.5 0.2-1.3 N [facility]landMeqxkqbQBXYZNLSY7479-99-75 14:30:00 Test Item Value Reference Range Interpretation Comments Albumin Lvl (test code = Albumin Lvl) 4.0 3.5-5.0 N [facility]landHqeqwqrRDSYHQNKB5807-03-09 14:30:00 Test Item Value Reference Range Interpretation Comments ALT (test code = ALT) 22.0 See_Comment N [Auto mated message] The system which ge nerated this result transmit brianda reference range : <=65. The reference range was not used to interpr et this result as cleopatra l/abnormal. [facility] CampusXrqahviWYNVPWPGK8461-47-57 14:30:00 Test Item Value Reference Range Interpretation Comments Total Protein (test code = Total 7.7 6.4-8.4 N Protein) [facility] CampusMdxodhvNPFUZESCE3261-00-28 14:30:00 Test Item Value Reference Range Interpretation Comments hCG Tot (test code = hCG Tot) <1.0 [facility]DpgwipqKTDSXVHIHR9937-56-65 14:30:00 Test Item Value Reference Range Interpretation Comments PTT (test code = PTT) 34.4 s 22.9-35.8 N [facility] CenterXjmkdikFEHWKWWQDN4936-22-78 14:30:00 Test Item Value Reference Range Interpretation Comments PT (test code = PT) 13.0 s 12.0-14.7 N [facility] CenterCyeuufiVIAZKEXHJN9570-20-34 14:30:00 Test Item Value Reference Range Interpretation Comments INR (test code = INR) 0.98 1 0.85-1.17 N [facility]
[2022-05-22] MEDS ORDERED: BENZONATATE 100 MG CAP PO ONE (17:21)
--- NOTE | 2022-05-22 17:51 | RAD REPORT ---
EXAM DESCRIPTION: RAD - Chest Pa And Lat (2 Views) - 05/22/2022 5:43 pm CLINICAL HISTORY: COUGH Chest pain. COMPARISON: CHEST PA AND LAT 2 VIEW dated 04/13/2015; CHEST PA AND LAT 2 VIEW dated 08/12/2014; CHEST PA AND LAT 2 VIEW dated 10/14/2010; CHEST SINGLE VIEW dated 06/27/2010 FINDINGS: The lungs are clear. The heart is normal in size. No displaced fractures. IMPRESSION: No acute or concerning finding suspected.
[2022-05-22 18:21] LABS: SARS-COV-2 RT PCR POSITIVE (NEGATIVE)
--- NOTE | 2022-05-22 18:37 | ER ---
Nurse's Notes [facility] Name: Malgorzata Griffith Age: 52 yrs Sex: Female : 1970 Arrival Date: 05/22/2022 Time: 16:12 Bed IW3 Private MD: Mann Fitch Diagnosis: SARS-associated coronavirus as the cause of diseases classified elsewhere Presentation: 05/22 17:03 Chief complaint: Patient states: SOB, fever, cough, sore throat, congestion that began vg1 last night; temperature of 104 temporal, took 800 mg PO at 1400. Coronavirus screen: Vaccine status: Patient reports being unvaccinated. Client denies travel out of the [place] in the last 14 days. Ebola Screen: Patient negative for fever greater than or equal to 101.5 degrees Fahrenheit, and additional compatible Ebola Virus Disease symptoms. Initial Sepsis Screen: Does the patient meet any 2 criteria? No. Patient's initial sepsis screen is negative. Does the patient have a suspected source of infection? No. Patient's initial sepsis screen is negative. Risk Assessment: Do you want to hurt yourself or someone else? Patient reports no desire to harm self or others. Onset of symptoms was May 21, 2022. 17:03 Method Of Arrival: Ambulatory vg1 17:03 Acuity: MARYBETH 4 vg1 Triage Assessment: 17:09 General: Appears uncomfortable, Behavior is cooperative. Pain: Complains of pain in vg1 head Pain currently is 3 out of 10 on a pain scale. Pain began 1 day ago. Neuro: Level of Consciousness is awake, alert, obeys commands, Oriented to person, place, time, situation, Reports headache. Respiratory: Airway is patent Respiratory effort is even, unlabored, Breath sounds are clear bilaterally. Historical: - Allergies: 17:09 No Known Allergies; vg1 - Home Meds: 17:09 losartan oral [Active]; Chlorthalidone Oral [Active]; vg1 - PMHx: 17:09 Hypertensive disorder; Aneurysm; vg1 - Immunization history:: Client reports having NOT received the Covid vaccine. - Social history:: Smoking status: Patient denies any tobacco usage or history of. Screenin:[address] [facility] ED Fall Risk Assessment (Adult) History of falling in the last 3 months, vg1 including since admission No falls in past 3 months (0 pts) Confusion or Disorientation No (0 pts) Intoxicated or Sedated No (0 pts) Impaired Gait No (0 pts) Mobility Assist Device Used No (0 pt) Altered Elimination No (0 pt) Score/Fall Risk Level 0 - 2 = Low Risk. Abuse screen: Denies threats or abuse. Nutritional screening: No deficits noted. Tuberculosis screening: No symptoms or risk factors identified. Assessment: 16:12 Reassessment: Pt O2 96% RA. vg1 Vital Signs: 16:13 Pulse Ox 96% on R/A; vg1 17:03 BP 111 / 83; Pulse 73; Resp 16; Temp 98.6(O); Pulse Ox 97% on R/A; Weight 56.7 kg; vg1 Height 5 ft. 2 in. (157.48 cm); 18:45 BP 108 / 82; Pulse 68; Resp 16; Pulse Ox 98% on R/A; vg1 17:03 Body Mass Index 22.86 (56.70 kg, 157.48 cm) vg1 ED Course: 16:12 Patient arrived in ED. as 16:12 Mann Fitch MD is Private Physician. as 16:13 Clifton Lowry PA is PHCP. cp 16:13 Irving Conde MD is Attending Physician. cp 17:09 Triage completed. vg1 17:09 Arm band placed on. vg1 17:15 Strep Sent. vg1 17:15 COVID-19/FLU A+B Sent. vg1 17:45 XRAY Chest Pa And Lat (2 Views) In Process Unspecified. EDMS 18:35 Mann Fitch MD is Referral Physician. cp 18:45 No provider procedures requiring assistance completed. Patient did not have IV access vg1 during this emergency room visit. 18:46 Patient has correct armband on for positive identification. vg1 Administered Medications: 17:20 Drug: Tessalon Perle (benzonatate) 200 mg Route: PO; vg1 18:45 Follow up: Response: No adverse reaction; Marked relief of symptoms vg1 Medication: 18:45 VIS not applicable for this client. vg1 Outcome: 18:36 Discharge ordered by MD. cp 18:45 Discharged to home ambulatory, with family. vg1 18:45 Condition: good 18:45 Discharge instructions given to patient, family, Instructed on discharge instructions, follow up and referral plans. medication usage, Demonstrated understanding of instructions, follow-up care, medications, Prescriptions given X 3. 18:46 Patient left the ED. vg1 Signatures: Dispatcher [employer] Fartun Yates Corey, PA PA cp Garcia, Victoria, RN RN vg1 Corrections: (The following items were deleted from the chart) 17:11 17:09 PSHx: Craniotomy; vg1 vg1
--- NOTE | 2022-05-22 18:37 | EDPHYS ---
Physician Documentation [facility] Name: Malgorzata Griffith Age: 52 yrs Sex: Female : 1970 Arrival Date: 05/22/2022 Time: 16:12 Bed IW3 Private MD: Mann Fitch ED Physician Irving Conde HPI: 05/22 17:15 This 52 yrs old Female presents to ER via Ambulatory with complaints of Shortness cp Of Breath, Fever. 17:15 The patient has shortness of breath with light activity. Onset: The symptoms/episode cp began/occurred yesterday. 17:15 Associated signs and symptoms: Pertinent positives: chest pain, non-productive cough, cp fever, sore throat, body aches, Pertinent negatives: diaphoresis, dizziness, vomiting. Severity of symptoms: in the emergency department the symptoms are unchanged despite home interventions. Historical: - Allergies: 17:09 No Known Allergies; vg1 - Home Meds: 17:09 losartan oral [Active]; Chlorthalidone Oral [Active]; vg1 - PMHx: 17:09 Hypertensive disorder; Aneurysm; vg1 - Immunization history:: Client reports having NOT received the Covid vaccine. - Social history:: Smoking status: Patient denies any tobacco usage or history of. ROS: 17:20 Constitutional: Positive for body aches, Negative for fever, poor PO intake. cp 17:20 Eyes: Negative for injury, pain, redness, and discharge. cp 17:20 ENT: Positive for sore throat, Negative for drainage from ear(s), ear pain, difficulty swallowing, difficulty handling secretions. 17:20 Cardiovascular: Positive for chest pain, with cough. 17:20 Respiratory: Positive for cough, with no reported sputum, shortness of breath, on exertion. Negative for wheezing. 17:20 Abdomen/GI: Negative for abdominal pain, vomiting, diarrhea, constipation. 17:20 Neuro: Negative for altered mental status, dizziness, headache, numbness, weakness. 17:20 All other systems are negative. Exam: 17:25 Constitutional: The patient appears in no acute distress, alert, awake, cp non-diaphoretic, non-toxic, well developed, well nourished, uncomfortable. 17:25 Head/Face: Normocephalic, atraumatic. cp 17:25 Eyes: Periorbital structures: appear normal, Conjunctiva: normal, no exudate, no injection, Sclera: no appreciated abnormality, Lids and lashes: appear normal, bilaterally. 17:25 ENT: External ear(s): are unremarkable, Ear canal(s): are normal, clear, TM's: dullness, bilaterally, Nose: is normal, Mouth: Lips: moist, Oral mucosa: moist, Posterior pharynx: Airway: no evidence of obstruction, patent, Tonsils: with erythema, no enlargement, no exudate, Uvula: midline, swelling, is not appreciated, erythema, that is moderate, exudate, is not appreciated. 17:25 Neck: ROM/movement: Meningeal signs: are not present, nuchal rigidity, is not appreciated, Lymph nodes: no appreciated lymphadenopathy. 17:25 Chest/axilla: Inspection: normal. 17:25 Cardiovascular: Rate: normal, Rhythm: regular. 17:25 Respiratory: the patient does not display signs of respiratory distress, Respirations: normal, no use of accessory muscles, no retractions, labored breathing, is not present, Breath sounds: are clear throughout, no decreased breath sounds, no stridor, no wheezing. 17:25 Abdomen/GI: Inspection: abdomen appears normal, Palpation: abdomen is soft and non-tender, in all quadrants. 17:25 Skin: no rash present. 17:25 Neuro: Orientation: to person, place \T\ time. Mentation: is normal. Vital Signs: 16:13 Pulse Ox 96% on R/A; vg1 17:03 BP 111 / 83; Pulse 73; Resp 16; Temp 98.6(O); Pulse Ox 97% on R/A; Weight 56.7 kg; vg1 Height 5 ft. 2 in. (157.48 cm); 18:45 BP 108 / 82; Pulse 68; Resp 16; Pulse Ox 98% on R/A; vg1 17:03 Body Mass Index 22.86 (56.70 kg, 157.48 cm) vg1 MDM: 17:21 Patient medically screened. cp 18:00 Differential diagnosis: Bronchitis pneumonia, Sepsis strep throat, influenza, COVID-19. cp 18:35 Data reviewed: vital signs, nurses notes, lab test result(s). cp 18:35 Antibiotic administration: Not indicated, the patient does not have an appreciated cp infiltrate, the patient has a suspected viral illness. Consideration of Admission/Observation Escalation of care including admission/observation considered. I considered the following discharge prescriptions or medication management in the emergency department Medications were administered in the Emergency Department. See MAR. Historians other than the Patient: Spouse/Significant Other: provides HPI. Care significantly affected by the following chronic conditions: Hypertension. Counseling: I had a detailed discussion with the patient and/or guardian regarding: the historical points, exam findings, and any diagnostic results supporting the discharge/admit diagnosis, lab results, to return to the emergency department if symptoms worsen or persist or if there are any questions or concerns that arise at home. Response to treatment: the patient's symptoms have mildly improved after treatment, and as a result, I will discharge patient. ED course: VSS. Patient appears non-toxic and no signs of respiratory distress. Will discharge to home for continued monitoring. 05/22 17:07 Order name: COVID-19/FLU A+B; Complete Time: 18:24 05/22 18:25 Interpretation: Reviewed. 05/22 17:07 Order name: Strep; Complete Time: 18:04 cp 05/22 18:04 Interpretation: Reviewed. 05/22 17:22 Order name: XRAY Chest Pa And Lat (2 Views); Complete Time: 18:04 05/22 18:04 Interpretation: Report reviewed. 05/22 17:48 Order name: Throat Culture EDMS Administered Medications: 17:20 Drug: Tessalon Perle (benzonatate) 200 mg Route: PO; vg1 18:45 Follow up: Response: No adverse reaction; Marked relief of symptoms vg1 Disposition Summary: 05/22/22 18:36 Discharge Ordered Location: Home cp Problem: new cp Symptoms: have improved cp Condition: Stable cp Diagnosis - SARS-associated coronavirus as the cause of diseases classified elsewhere cp Followup: cp - With: Mann Fitch MD - When: 2 - 3 days - Reason: Worsening of condition Discharge Instructions: - Aspirin and Your Heart cp - COVID-19 cp - Things to Know about the COVID-19 Pandemic - [facility] cp - 10 Things You Can Do to Manage Your COVID-19 Symptoms at Home - [facility] cp - COVID-19: Quarantine vs. Isolation - [facility] cp - Prevent the Spread of COVID-19 if You Are Sick - [facility] cp - Discharge Summary Sheet jl7 Forms: - Medication Reconciliation Form cp - Thank You Letter cp - Antibiotic Education cp - Prescription Opioid Use cp - Work release form jl7 Prescriptions: - Bromfed DM 2-30-10 mg/5 mL Oral syrup - take 10 milliliter by ORAL route every 6 hours; 180 milliliter; Refills: 0, cp Product Selection Permitted - Paxlovid (EUA) 150 mg x 2- 100 mg Oral tablet - take 3 tablet by ORAL route 2 times per day for 5 days per package directions; cp 30 tablet; Refills: 0, Product Selection Permitted - Ibuprofen 800 mg Oral Tablet - take 1 tablet by ORAL route every 8 hours As needed take with food; 30 tablet; cp Refills: 0, Product Selection Permitted Addendum: 05/24/2022 01:04 Co-signature as Attending Physician, Irving Conde MD I reviewed the patient's care r n provided by the Advanced Practice Provider and agree with the diagnosis and treatment plan. Signatures: Dispatcher [employer] EDMS Irving Conde MD MD rn Page, Corey, PA PA cp Garcia, Victoria RN RN vg1 Corrections: (The following items were deleted from the chart) 05/22 17:11 17:09 PSHx: Craniotomy; vg1 vg1 05/23 18:20 18:18 The patient has shortness of breath with light activity, cp cp 18:20 18:18 Onset: The symptoms/episode began/occurred yesterday, cp cp
[2022-05-22 19:25] VITALS: TEMP 98.6
[2022-05-22 19:27] VITALS: BP 108/82; O2SAT 98
== END 2022-05-22 18:46 | disposition home or self-care (01) ==
LOC: ER 16:10
DX: U07.1 COVID-19 (principal); I10 Essential (primary) hypertension
CPT/HCPCS: 87070; 87081; 0240U; 71046; 99284

== ENCOUNTER 2023-08-03 10:43 | Emergency (ER) | payer OTHER ==
[2023-08-03 11:22] LABS: Specific Gravity 1.006 (1.005-1.030); Urine Bilirubin NEGATIVE (Negative); Urine Blood Negative (Negative); Urine Clarity Clear (Clear); Urine Color Colorless (Yellow); Urine Glucose NEGATIVE (Negative); Urine Ketones NEGATIVE (Negative); Urine Microscopic Reflex YN NO UMIC; Urine Nitrite NEGATIVE (Negative); Urine Protein NEGATIVE (Negative); Urine Urobilinogen Normal (Normal)
[2023-08-03 11:26] LABS: Absolute Eosinophils 0.1 K/uL (0-0.5); Absolute Lymphocytes (CBC) 1.4 K/uL (0.7-4.9); Absolute Monocytes 0.6 K/uL (0.1-1.3); Absolute Neutrophil 4.7 K/uL (1.8-8.0); Basophils % 0.7 % (0-1.3); Eosinophils % 1.9 % (0-4.4); Hemoglobin 12.7 g/dL (12.0-15.0); MCH 30.7 pg (27.0-35.0); MCHC 33.5 g/dL (32.0-36.0); MCV 91.7 fL (80-100); MPV 7.6 fL (7.6-11.3); Monocytes % 8.4 % (3.3-12.3); Platelets 252 thou/uL (152-406); RBC Red Blood Cell Count 4.15 M/uL (3.86-4.86); Red Cell Distribution Width 13.7 % (12.1-15.2)
[2023-08-03 11:34] LABS: Albumin 3.7 g/dL (3.4-5.0); Anion Gap 4.8 mEq/L (5.0-15.0); Bilirubin Total 0.7 mg/dL (0.2-1.0); Globulin 3.6 g/dL (2.3-3.5); Potassium 3.8 mEq/L (3.5-5.1); Protein, Total 7.3 g/dL (6.4-8.2)
--- NOTE | 2023-08-03 12:32 | RAD REPORT ---
EXAM DESCRIPTION: CT - Abdomen Pelvis Wo Contrast - 08/03/2023 11:43 am CLINICAL HISTORY: Abd pain;Abdominal distention COMPARISON: CT ABD PELVIS W CONTRAST dated 01/15/2015; CT ABD PELVIS W CONTRAST dated 03/15/2013; CT- STONE PROTOCOL dated 03/18/2009; CT ABD PELVIS W CONTRAST dated 12/03/2007 TECHNIQUE: Thin cut axial CT imaging of the abdomen and pelvis was performed without IV contrast. Mu ltiplanar reformats were generated and reviewed. All CT scans are performed using dose optimization technique as appropriate and may include automated exposure control or mA/KV adjustment according to patient size. FINDINGS: No suspicious findings in the lung bases. The liver, spleen, adrenal glands, and pancreas show no suspicious findings. Gallbladder and biliary tree are also without suspicious finding. Left kidney is not visualized, and the surgically removed. No suspicious parenchymal findings within limits of noncontrast technique. No evidence of radiopaque calculi. Stable prominence of the right re nal pelvis. No hydroureter. No dilated bowel loops or bowel wall thickening. Colonic diverticulosis. No free air, free fluid or i nflammatory stranding. No hernia, mass or bulky lymphadenopathy. 4 mm focus of radiodensity near the bladder base, could represent a phlebolith versus a distal ureteral calculus. The urinary bladder is without significant finding. No suspicious bony findings. IMPRESSION: Radiodense 4 mm focus near the bladder base, could represent a phlebolith versus a dista l ureteral calculus. Stable prominence of the right renal pelvis. No hydroureter. No other acute intra-abdominal process.
--- NOTE | 2023-08-03 13:12 | ER ---
Nurse's Notes [facility] Name: Malgorzata Griffith Age: 53 yrs Sex: Female : 1970 Arrival Date: 08/03/2023 Time: 10:43 Bed 7 Private MD: Diagnosis: Calculus of ureter Presentation: 08/02 10:54 Chief complaint: Patient states: "1 month ago, I was treated for an UTI. The past few mb9 days I have urinary frequency, bloating, and pain in my lower abdomen.". Coronavirus screen: Vaccine status: Patient reports being unvaccinated. Ebola Screen: No symptoms or risks identified at this time. Initial Sepsis Screen: Does the patient meet any 2 criteria? No. Patient's initial sepsis screen is negative. Does the patient have a suspected source of infection? No. Patient's initial sepsis screen is negative. Risk Assessment: Do you want to hurt yourself or someone else? Patient reports no desire to harm self or others. Onset of symptoms was August 03, 2023. 10:54 Method Of Arrival: Ambulatory 9 10:54 Acuity: MARYBETH 3 mb9 Triage Assessment: 10:58 General: Appears in no apparent distress. Behavior is calm, cooperative. Pain: mb9 Complains of pain in abdomen and pelvis Pain currently is 6 out of 10 on a pain scale. Quality of pain is described as throbbing. EENT: No deficits noted. Neuro: Ramos Agitation-Sedation Scale (RASS): 0 - Alert and Calm Level of Consciousness is awake, alert, obeys commands, Oriented to person, place, time, situation, Appropriate for age. Cardiovascular: Patient's skin is warm and dry. Respiratory: Airway is patent Respiratory effort is even, unlabored, Respiratory pattern is regular, symmetrical. GI: Abdomen is round non-distended, Bowel sounds present X 4 quads. Abd is soft Abdomen is tender to palpation in suprapubic area. : Reports urinary frequency. Derm: Skin is pink, warm \\T\\ dry. Musculoskeletal: Range of motion: intact in all extremities. 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 - Infectious Disease History:: Denies. - Social history:: Smoking status: Patient denies any tobacco usage or history of. Screenin:59 [facility] ED Fall Risk Assessment (Adult) History of falling in the last 3 months, mb9 including since admission No falls in past 3 months (0 pts) Confusion or Disorientation No (0 pts) Intoxicated or Sedated No (0 pts) Impaired Gait No (0 pts) Mobility Assist Device Used No (0 pt) Altered Elimination No (0 pt) Score/Fall Risk Level 0 - 2 = Low Risk Oriented to surroundings, Maintained a safe environment, Educated pt \\T\\ family on fall prevention, incl call for assistance when getting out of bed. Abuse screen: Denies threats or abuse. Nutritional screening: No deficits noted. Tuberculosis screening: No symptoms or risk factors identified. Assessment: 13:51 Reassessment: Patient appears in no apparent distress at this time. Patient and/or as6 family updated on plan of care and expected duration. Pain level reassessed. Patient is alert, oriented x 3, equal unlabored respirations, skin warm/dry/pink. Vital Signs: 10:54 BP 142 / 99; Pulse 76; Resp 16; Temp 98.2(O); Pulse Ox 98% on R/A; Weight 56.7 kg; mb9 Height 5 ft. 2 in. ; 12:00 BP 123 / 97; Pulse 69; Resp 18 S; Pulse Ox 99% on R/A; as6 13:00 BP 125 / 99; Pulse 71; Resp 16 S; Pulse Ox 99% on R/A; as6 10:54 Body Mass Index 22.86 (56.70 kg, 157.48 cm) mb9 ED Course: 10:47 Patient arrived in ED. mg5 10:49 Nuris Rodriguez RN is Primary Nurse. mb9 10:51 Randy Renteria MD is Attending Physician. ec2 10:57 Triage completed. mb9 10:58 Arm band placed on. mb9 10:59 Placed in gown. Bed in low position. Call light in reach. Side rails up X 1. Client mb9 placed on continuous cardiac and pulse oximetry monitoring. NIBP monitoring applied. Door closed. Noise minimized. Warm blanket given. 10:59 Provided Education on: press call light if needing anything. mb9 10:59 No provider procedures requiring assistance completed. mb9 11:07 CBC with Diff Sent. mb9 11:07 CMP Sent. mb9 11:07 Urinalysis w/ reflexes Sent. mb9 11:07 Initial lab(s) drawn, by tx, sent to lab. Urine collected: clean catch specimen, clear. mb9 Inserted saline lock: 20 gauge in left antecubital area, using aseptic technique. Blood collected. 11:45 CT Abd/Pelvis - Without Contrast In Process Unspecified. EDMS 11:55 Report given to YAYA Barron. mb9 13:13 Rodrigue Lau MD is Referral Physician. ec2 13:50 IV discontinued, intact, bleeding controlled, No redness/swelling at site. Pressure as6 dressing applied. Administered Medications: No medications were administered Medication: 10:59 VIS not applicable for this client. mb9 Outcome: 13:12 Discharge ordered by . ec2 13:50 Discharged to home ambulatory, as6 13:50 Condition: stable 13:50 Discharge instructions given to patient, Instructed on discharge instructions, follow up and referral plans. Demonstrated understanding of instructions, follow-up care, 13:51 Patient left the ED. as6 Signatures: Dispatcher [employer] Anderson Rao RN RN as6 Nuris Rodriguez RN RN mb9 Radha Diaz mg5 Randy Renteria MD MD ec2
--- NOTE | 2023-08-03 13:12 | EDPHYS ---
Physician Documentation [facility] Name: Malgorzata Griffith Age: 53 yrs Sex: Female : 1970 Arrival Date: 08/03/2023 Time: 10:43 Bed 7 Private MD: ED Physician Randy Renteria HPI: 08/02 11:03 This 53 yrs old Female presents to ER via Ambulatory with complaints of Abdominal ec2 Pain. 11:03 Patient arrives today for evaluation of lower abdominal pain. Patient reports that she ec2 has been having symptoms for several days. Patient reports some lower abdominal discomfort, states that she is having some urinary frequency. Patient reports no fevers or chills, no nausea or vomiting. Patient reports no cough and cold symptoms. Reports recent UTI approximately 1 month ago and feels like these are similar symptoms.. 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 - Infectious Disease History:: Denies. - Social history:: Smoking status: Patient denies any tobacco usage or history of. ROS: 11:03 Constitutional: as per hpi ec2 Exam: 11:03 Constitutional: GEN: NAD Head: atraumatic Eyes: EOMI Ears: External ears are ec2 normal. CV: regular rate LUNGS: no respiratory distress ABD: non-distended, minimal abdominal TTP in the lower abdomen. SKIN: no evidence of rashes MSK: no evidence of trauma NEURO: moves all extremities equally Vital Signs: 10:54 BP 142 / 99; Pulse 76; Resp 16; Temp 98.2(O); Pulse Ox 98% on R/A; Weight 56.7 kg; mb9 Height 5 ft. 2 in. ; 12:00 BP 123 / 97; Pulse 69; Resp 18 S; Pulse Ox 99% on R/A; as6 13:00 BP 125 / 99; Pulse 71; Resp 16 S; Pulse Ox 99% on R/A; as6 10:54 Body Mass Index 22.86 (56.70 kg, 157.48 cm) mb9 MDM: 11:00 Patient medically screened. ec2 11:03 Data reviewed: vital signs. ED course: Patient arrives today for lower abdominal ec2 discomfort along with urinary complaints. Examination remarkable for well-appearing nontoxic dividual with abdominal findings as noted above. Will obtain lab work, urine studies. Evaluate for processes UTI, electrolyte disturbance, dehydration, kidney dysfunction.. 11:35 ED course: Metabolic profile is reassuring, CBC reassuring without leukocytosis, urine ec2 is noninfectious appearing. . 12:55 ED course: Small phleboliths versus distal ureteral calculus. Will have the patient ec2 follow-up with urology. Will discharge home. Return precautions given. . 08/02 11:01 Order name: CBC with Diff; Complete Time: 11:35 ec2 08/02 11:01 Order name: CMP; Complete Time: 11:35 ec2 08/02 11:01 Order name: Urinalysis w/ reflexes; Complete Time: 11:35 ec2 08/02 11:35 Order name: CT Abd/Pelvis - Without Contrast; Complete Time: 12:55 ec2 08/02 11:01 Order name: IV Saline Lock; Complete Time: 11:07 ec2 08/02 11:01 Order name: Labs collected and sent; Complete Time: 11:07 ec2 Administered Medications: No medications were administered Disposition Summary: 08/03/23 13:12 Discharge Ordered Notes: Location: Home ec2 Condition: Stable ec2 Diagnosis - Calculus of ureter ec2 Followup: ec2 - With: Private Physician - When: - Reason: Re-evaluation by your physician Followup: ec2 - With: Rodrigue Lau MD - When: - Reason: Recheck today's complaints Discharge Instructions: - Discharge Summary Sheet ec2 - Kidney Stones ec2 Forms: - Medication Reconciliation Form ec2 - Thank You Letter ec2 - Antibiotic Education ec2 - Prescription Opioid Use ec2 - Patient Portal Instructions ec2 - Leadership Thank You Letter ec2 Prescriptions: - acetaminophen-codeine 300-15 mg Oral tablet - take 1 tablet ORAL route 4 times per day as needed for pain; 12 tablet; ec2 Refills: 0, Product Selection Permitted Signatures: Dispatcher [employer] EDMS Rodriguez Slime, RN RN mb9 Randy Renteria MD MD ec2
[2023-08-03 14:33] VITALS: BP 125/99; TEMP 98.2; O2SAT 99
== END 2023-08-03 13:51 | disposition home or self-care (01) ==
LOC: ER 10:43
DX: N39.0 Urinary tract infection, site not specified (principal); I10 Essential (primary) hypertension; Z86.73 Personal history of transient ischemic attack (TIA), and cerebral infarction without residual deficits
CPT/HCPCS: 36415; 74176; 80053; 81003; 85025; 99284

== ENCOUNTER 2024-01-24 18:46 | Emergency (ER) | payer OTHER ==
[2024-01-24] MEDS ORDERED: NA CHLORIDE 0.9% 1,000 ML ONE (20:00)
[2024-01-24 20:06] LABS: Absolute Basophils 0.1 K/uL (0-0.5); Absolute Eosinophils 0.3 K/uL (0-0.5); Absolute Lymphocytes (CBC) 1.9 K/uL (0.7-4.9); Absolute Monocytes 0.6 K/uL (0.1-1.3); Absolute Neutrophil 2.6 K/uL (1.8-8.0); Eosinophils % 4.7 % (0-4.4); Hematocrit 36.9 % (36.0-45.0); Hemoglobin 12.6 g/dL (12.0-15.0); Lymphocytes % 35.6 % (15.3-44.8); MCH 31.3 pg (27.0-35.0); MCHC 34.1 g/dL (32.0-36.0); MCV 91.8 fL (80-100); MPV 7.7 fL (7.6-11.3); Monocytes % 10.5 % (3.3-12.3); Neutrophils % 48.2 % (41.7-73.7); Nucleated Red Blood Cells % 0.1 % (0-0); Platelets 232 thou/uL (152-406); RBC Red Blood Cell Count 4.02 M/uL (3.86-4.86); Red Cell Distribution Width 13.1 % (12.1-15.2)
[2024-01-24 20:07] LABS: Specific Gravity 1.005 (1.005-1.030); Sqamous Epithelial None Seen /HPF (None Seen); Urine Bacteria <20 /HPF (<20); Urine Bilirubin NEGATIVE (Negative); Urine Blood Negative (Negative); Urine Clarity Clear (Clear); Urine Color Colorless (Yellow); Urine Culture Reflex Order NOT NEEDED; Urine Glucose NEGATIVE (Negative); Urine Ketones NEGATIVE (Negative); Urine Micro Reflex YN NO BILL MICROSCOPIC; Urine Nitrite NEGATIVE (Negative); Urine Protein NEGATIVE (Negative); Urine RBC <5 /HPF (None Seen); Urine Urobilinogen Normal (Normal); Urine WBC None Seen /HPF (<5)
[2024-01-24 20:20] LABS: Albumin 3.6 g/dL (3.4-5.0); Albumin/Globulin Ratio 0.9 (1.1-1.8); Anion Gap 4.6 mEq/L (5.0-15.0); Bilirubin Total 0.3 mg/dL (0.2-1.0); Globulin 3.9 g/dL (2.3-3.5); Potassium 3.6 mEq/L (3.5-5.1); Protein, Total 7.5 g/dL (6.4-8.2)
--- NOTE | 2024-01-24 20:43 | RAD REPORT ---
EXAMINATION: Stone Protocol CLINICAL INDICATION: Female, 53 years old. FLANK PAIN TECHNIQUE: CT abdomen and pelvis was performed, without IV contrast, as per department protocol. Axia l, sagittal and coronal reconstructions were obtained. One or more of the following dose reduction techniques were used: Automated exposure control, adjustment of the mA and kV according to the patien t size, and iterative reconstruction. Unless otherwise specified, incidental findings do not require dedicated imaging follow-up. COMPARISON: 08/03/2023 FINDINGS: The lack of intravenous contrast limits the sensitivity of this exam for evaluation of solid visceral organs, vascular structures, and retroperitoneum. LOWER CHEST: The visualized lung bases are clear. LIVER: Normal in size and contour. No focal lesion. BILIARY SYSTEM: No suspicious abnormalities. SPLEEN: Normal size. No focal lesion. PANCREAS: No mass, ductal dilation, or vic-pancreatic fluid. ADRENALS: Normal; no mass. KIDNEYS AND URETERS: Left kidney is not visualized, could be surgically or congenitally absent. Yojana l size and contour of the right kidney. No hydroureteronephrosis. URINARY BLADDER: Normal contour. GASTROINTESTINAL TRACT: No evidence of bowel obstruction, significant free fluid, free air or abscess . APPENDIX: Normal appendix. LYMPH NODES: No lymphadenopathy. MUSCULOSKELETAL: No acute or suspicious osseous abnormality. ADDITIONAL FINDINGS: None. IMPRESSION: No acute or concerning abnormalities in the abdomen or pelvis, with evaluation limited by lack of IV contrast.
--- NOTE | 2024-01-24 21:29 | ER ---
Nurse's Notes [facility] Name: Malgorzata Griffith Age: 53 yrs Sex: Female : 1970 Arrival Date: 01/24/2024 Time: 18:46 Bed 17 Private MD: Diagnosis: Low back pain Presentation: 01/23 19:01 Chief complaint: Patient states: BILATERAL FLANK PAIN STATES WAS BORN WITH ONE KIDNEY X db 2 WEEKS WORSE TODAY. Coronavirus screen: Client denies travel out of the [place] in the last 14 days. At this time, the client does not indicate any symptoms associated with coronavirus-19. Ebola Screen: Patient negative for fever greater than or equal to 101.5 degrees Fahrenheit, and additional compatible Ebola Virus Disease symptoms Patient denies exposure to infectious person. Patient denies travel to an Ebola-affected area in the 21 days before illness onset. No symptoms or risks identified at this time. Initial Sepsis Screen: Does the patient meet any 2 criteria? No. Patient's initial sepsis screen is negative. Does the patient have a suspected source of infection? No. Patient's initial sepsis screen is negative. Risk Assessment: Do you want to hurt yourself or someone else? Patient reports no desire to harm self or others. Onset of symptoms was January 24, 2024. 19:01 Method Of Arrival: Ambulatory db 19:01 Acuity: MARYBETH 3 db Triage Assessment: 19:04 General: Appears in no apparent distress. comfortable, Behavior is calm, cooperative. db Pain: Complains of pain in back. Neuro: Level of Consciousness is awake, alert, obeys commands, Oriented to person, place, time, situation. Respiratory: Airway is patent Respiratory effort is even, unlabored, Respiratory pattern is regular, symmetrical. 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 - Infectious Disease History:: Denies. - Social history:: Smoking status: Patient/guardian denies using tobacco, the patient reports quitting approximately 12 years ago. Screenin:45 [facility] ED Fall Risk Assessment (Adult) History of falling in the last 3 months, rg5 including since admission No falls in past 3 months (0 pts) Confusion or Disorientation No (0 pts) Intoxicated or Sedated No (0 pts) Impaired Gait No (0 pts) Mobility Assist Device Used No (0 pt) Altered Elimination No (0 pt) Score/Fall Risk Level 0 - 2 = Low Risk Oriented to surroundings, Maintained a safe environment, Hourly rounding (assess needs \T\ fall precautionary measures) done. Abuse screen: Denies threats or abuse. Nutritional screening: No deficits noted. Tuberculosis screening: No symptoms or risk factors identified. Assessment: 19:45 General: Appears in no apparent distress. comfortable, Behavior is calm, cooperative, rg5 appropriate for age. 19:45 Pain: Complains of pain in abdomen Pain currently is 6 out of 10 on a pain scale. rg5 Quality of pain is described as aching. Neuro: Level of Consciousness is awake, alert, Oriented to person, place, time. Cardiovascular: Denies chest pain, Patient's skin is warm and dry. Respiratory: Airway is patent Trachea midline Respiratory effort is even, unlabored, Respiratory pattern is regular, symmetrical. GI: Abdomen is round non-distended, Bowel sounds present in left lower quadrant Abd is soft and non tender. : No signs and/or symptoms were reported regarding the genitourinary system. EENT: No deficits noted. Derm: Skin is intact, Skin is dry, Skin is normal, Skin temperature is warm. Musculoskeletal: Circulation, motion, and sensation intact. Range of motion: intact in all extremities. 20:33 Reassessment: Patient and/or family updated on plan of care and expected duration. Pain rg5 level reassessed. Patient is alert, oriented x 3, equal unlabored respirations, skin warm/dry/pink. Vital Signs: 19:01 BP 152 / 105; Pulse 63; Resp 18; Temp 97.7(O); Pulse Ox 96% ; Weight 56.7 kg; Height 5 db ft. 2 in. ; Pain 9/10; 19:45 BP 155 / 100; Pulse 60; Resp 17; Temp 98(O); Pulse Ox 100% on R/A; rg5 20:35 BP 143 / 95; Pulse 63; Resp 17; Pulse Ox 100% on R/A; rg5 21:30 BP 147 / 100; Pulse 65; Resp 18; Temp 98; Pulse Ox 99% on R/A; rg5 19:01 Body Mass Index 22.86 (56.70 kg, 157.48 cm) db 19:01 Pain Scale: Adult db [place] Coma Score: 19:45 Eye Response: spontaneous(4). Motor Response: obeys commands(6). Verbal Response: rg5 oriented(5). Total: 15. ED Course: 18:50 Patient arrived in ED. im 18:51 Jose Francisco Solomon NP is PHCP. pm1 18:51 Randy Renteria MD is Attending Physician. pm1 19:04 Triage completed. db 19:04 Arm band placed on Patient placed in waiting room. db 19:36 Stone Protocol In Process Unspecified. EDMS 19:40 Piyush Allen RN is Primary Nurse. rg5 19:45 Patient has correct armband on for positive identification. Bed in low position. Call rg5 light in reach. Side rails up X 1. Adult w/ patient. 19:45 No provider procedures requiring assistance completed. Inserted saline lock: 20 gauge rg5 in right antecubital area, using aseptic technique. Blood collected. Flushed with 10 mL NS. 20:15 Resting quietly. Awaiting lab results, Awaiting radiology results. rg5 21:41 Provided Education on: POST ER CARE. rg5 21:41 IV discontinued, bleeding controlled, No redness/swelling at site. Pressure dressing rg5 applied. Administered Medications: 19:45 Drug: NS 0.9% IV 1000 ml IV at 1 bolus Per protocol; 1000 mL bolus Route: IV; Rate: 1 rg5 bolus; Site: right antecubital; 21:31 Follow up: IV Status: Completed infusion; IV Intake: 1000ml rg5 Medication: 19:45 VIS not applicable for this client. rg5 Intake: 21:31 IV: 1000ml; Total: 1000ml. rg5 Outcome: 21:28 Discharge ordered by . pm1 21:41 Discharged to home ambulatory, rg5 21:41 Condition: stable 21:41 Discharge instructions given to patient, Instructed on discharge instructions, follow up and referral plans. 21:42 Patient left the ED. rg5 Signatures: Dispatcher [employer] EDDE Jose Francisco Solomon NP PIPELINE DISPATCHER pm1 Luz Batista, RN RN db Roz Mathews Rommel, RN RN rg5
--- NOTE | 2024-01-24 21:29 | EDPHYS ---
Physician Documentation [facility] Name: Malgorzata Griffith Age: 53 yrs Sex: Female : 1970 Arrival Date: 01/24/2024 Time: 18:46 Bed 17 Private MD: ED Physician Randy Renteria HPI: 01/23 19:13 This 53 yrs old Female presents to ER via Ambulatory with complaints of Flank pm1 Pain. 19:13 The patient complains of pain in the right low back. The pain does not radiate. Onset: pm1 The symptoms/episode began/occurred 2 week(s) ago. Modifying factors: The symptoms are alleviated by nothing. the symptoms are aggravated by nothing. Associated signs and symptoms: Pertinent positives: dysuria. Severity of pain: in the emergency department the pain is actually worse. The patient has not experienced similar symptoms in the past. The patient has not recently seen a physician. 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 - Infectious Disease History:: Denies. - Social history:: Smoking status: Patient/guardian denies using tobacco, the patient reports quitting approximately 12 years ago. ROS: 19:13 Constitutional: Negative for fever, chills, and weight loss, Cardiovascular: Negative pm1 for chest pain, palpitations, and edema, Respiratory: Negative for shortness of breath, cough, wheezing, and pleuritic chest pain, 19:13 Abdomen/GI: Negative for abdominal pain, nausea, vomiting, diarrhea, and constipation, MS/Extremity: Negative for injury and deformity, Skin: Negative for injury, rash, and discoloration, Neuro: Negative for headache, weakness, numbness, tingling, and seizure, 19:13 Back: Positive for flank pain, on the right, 19:13 All other systems are negative, Exam: 19:13 Constitutional: This is a well developed, well nourished patient who is awake, alert, pm1 and in no acute distress. Head/Face: Normocephalic, atraumatic. 19:13 MS/ Extremity: Pulses equal, no cyanosis. Neurovascular intact. Full, normal range of motion. 19:13 Cardiovascular: Exam negative for acute changes, 19:13 Respiratory: Exam negative for acute changes, 19:13 Abdomen/GI: Inspection: abdomen appears normal, Palpation: abdomen is soft and non-tender, in all quadrants, 19:13 Back: pain, that is mild, of the right low back, vertebral tenderness, is not appreciated, 19:13 Neuro: Exam negative for acute changes, Orientation: is normal, Mentation: is normal, Motor: is normal, moves all fours, Gait: is steady, at a normal pace, without difficulty, Vital Signs: 19:01 BP 152 / 105; Pulse 63; Resp 18; Temp 97.7(O); Pulse Ox 96% ; Weight 56.7 kg; Height 5 db ft. 2 in. ; Pain 9/10; 19:45 BP 155 / 100; Pulse 60; Resp 17; Temp 98(O); Pulse Ox 100% on R/A; rg5 20:35 BP 143 / 95; Pulse 63; Resp 17; Pulse Ox 100% on R/A; rg5 21:30 BP 147 / 100; Pulse 65; Resp 18; Temp 98; Pulse Ox 99% on R/A; rg5 19:01 Body Mass Index 22.86 (56.70 kg, 157.48 cm) db 19:01 Pain Scale: Adult db [place] Coma Score: 19:45 Eye Response: spontaneous(4). Motor Response: obeys commands(6). Verbal Response: rg5 oriented(5). Total: 15. MDM: 19:01 Patient medically screened. pm1 19:13 ED course: patient refused pain medications offered. pm1 21:27 Data reviewed: vital signs. pm1 21:27 Counseling: I had a detailed discussion with the patient and/or guardian regarding the pm1 historical points, exam findings, and any diagnostic results supporting the discharge/admit diagnosis, lab results, radiology results, the need for outpatient follow up, a family practitioner, a urologist, to return to the emergency department if symptoms worsen or persist or if there are any questions or concerns that arise at home. 01/23 19:13 Order name: CBC with Diff; Complete Time: 21:09 pm1 01/23 19:13 Order name: CMP; Complete Time: 21:09 pm1 01/23 19:13 Order name: Lipase; Complete Time: 21:09 pm1 01/23 19:13 Order name: Urine W/Microscopic (UAM); Complete Time: 21:09 pm1 01/23 19:36 Order name: Stone Protocol; Complete Time: 21:09 EDMS 01/23 19:13 Order name: IV Saline Lock; Complete Time: 20:08 pm1 01/23 19:13 Order name: Labs collected and sent; Complete Time: 20: pm1 Administered Medications: 19:45 Drug: NS 0.9% IV 1000 ml IV at 1 bolus Per protocol; 1000 mL bolus Route: IV; Rate: 1 rg5 bolus; Site: right antecubital; 21:31 Follow up: IV Status: Completed infusion; IV Intake: 1000ml rg5 Disposition Summary: 01/24/24 21:28 Discharge Ordered Notes: Location: Home pm1 Problem: new pm1 Symptoms: have improved pm1 Condition: Stable pm1 Diagnosis - Low back pain pm1 Followup: pm1 - With: Emergency Department - When: As needed - Reason: Worsening of condition Followup: pm1 - With: Private Physician - When: 2 - 3 days - Reason: Recheck today's complaints, Continuance of care, Re-evaluation by your physician Discharge Instructions: - Discharge Summary Sheet pm1 - Flank Pain, Adult pm1 - Musculoskeletal Pain pm1 Forms: - Medication Reconciliation Form pm1 - Antibiotic Education pm1 - Prescription Opioid Use pm1 - Patient Portal Instructions pm1 - Leadership Thank You Letter pm1 Signatures: Dispatcher [employer] EDJose Francisco Beltran NP STAFF ENGINEER pm1 Luz Batista, RN RN db Piyush Allen, YAYA RN rg5 Corrections: (The following items were deleted from the chart) 19: 19:13 Abdomen Pelvis Wo Con+CT.RAD.BRZ ordered. EDMS EDMS
[2024-01-24 22:17] VITALS: TEMP 98
[2024-01-24 22:19] VITALS: BP 147/100; O2SAT 99
== END 2024-01-24 21:42 | disposition home or self-care (01) ==
LOC: ER 18:46
DX: M54.50 Low back pain, unspecified (principal); I10 Essential (primary) hypertension; Z86.73 Personal history of transient ischemic attack (TIA), and cerebral infarction without residual deficits
CPT/HCPCS: 36415; 74176; 76377; 80053; 81001; 83690; 85025; 96360; 96361; 99284; J7030